=== PATIENT | male | born 1995 | race Caucasian/White ===

== ENCOUNTER 2022-07-16 07:13 | Emergency (ER) | payer OTHER, SELFPAY ==
[2022-07-16] VITALS (8 sets, daily range): BP systolic 123–144; BP diastolic 73–94; PULSE 73–88; RESP 16–21; TEMP 37.1; O2SAT 96–98
--- NOTE | 2022-07-16 07:19 | ECG_ITS ---
Measurements Intervals [place] Rate: 74 P: 77 UT: 170 QRS: 85 QRSD: 114 T: 65 QT: 364 QTc: 404 Interpretive Statements SINUS RHYTHM WITH SINUS ARRHYTHMIA POSSIBLE LEFT ATRIAL ENLARGEMENT INTRAVENTRICULAR CONDUCTION DELAY BORDERLINE R WAVE PROGRESSION, ANTERIOR LEADS BASELINE WANDER- V3 BORDERLINE ECG NO PREVIOUS ECG AVAILABLE FOR COMPARISON Electronically Signed On 07-16-2022 8:15:50 CDT by Mark Corbett D.O.
[2022-07-16 07:34] LABS: Basophils Absolute Auto 0.1 K/mm3 (0.0-0.1); Basophils Percent Auto 0.5 % (0.2-1.2); Eosinophils Absolute Auto 0.1 K/mm3 (0-0.3); Eosinophils Percent Auto 0.8 % (0-4.4); Hematocrit 47.9 % (42.0-52.0); Hemoglobin 16.6 g/dL (14.0-18.0); Immature Granulocyte Absolute 0.03 K/mm3 (0.00-0.031); Immature Granulocyte Percent A 0.3 % (0-0.5); Lymphocytes Absolute Auto 4.53 K/mm3 (0.9-3.2); Lymphocytes Percent Auto 42.7 % (18.3-44.2); Mean Corpuscular HGB Conc 34.7 g/dl (32-36); Mean Corpuscular Hemoglobin 32.2 pg (26-34); Mean Corpuscular Volume 92.8 fl (80-100); Mean Platelet Volume 9.2 fl (7.4-10.4); Monocytes Absolute Auto 0.6 K/mm3 (0.1-0.6); Monocytes Percent Auto 5.2 % (2.6-8.5); Neutrophils Absolute Auto 5.4 K/mm3 (1.3-6.7); Neutrophils Percent Auto 50.5 % (45.5-73.1); Platelet Count Result 310 k/mm3 (150-375); Red Blood Count 5.16 M/mm3 (4.6-6.20); Red Cell Distribution Width 12.1 % (11.5-14.5); White Blood Count 10.6 K/mm3 (4.5-10.0)
[2022-07-16 07:45] LABS: Acetaminophen 62 ug/mL (10-30); Ethanol 76 mg/dL (<10); Salicylate 19.4 mg/dL (2-20)
--- NOTE | 2022-07-16 07:51 | ED.GENADULT ---
HPI - General Adult General Chief complaint: Overdose Stated complaint: OD on excedrin Time Seen by Provider: 07/16/22 07:20 History of Present Illness HPI narrative: 26-year-old male presenting to the emergency department for evaluation of intentional ingestion with the intent for self-harm of Excedrin. Patient states he does have a history of anxiety and depression. Patient reports that at approximately 630 this morning he took approximately 30 pills of Excedrin. Patient has had some nausea and vomiting since then. Patient denies any THC or alcohol today. Patient denies any prior attempt at self-harm. Patient does have a therapist that he follows with, Geni, approximately every 2 weeks in [place]. Patient last saw his therapist 2 weeks ago. Related Data Home Medications Medication Instructions Recorded Confirmed No Home Medications 07/16/22 07/16/22 Allergies Allergy/AdvReac Type Severity Reaction Status Date / Time No Known Allergies Allergy Verified 07/16/22 07:25 Review of Systems Review of Systems: All systems reviewed & are unremarkable except as noted in HPI and below PMFSH Social History Social History Substance use type: does not use Exam Narrative: APPEARANCE: Well appearing, no pain, no distress, well-nourished. HEAD: normocephalic, atraumatic. EYES: PERRLA/EOMI, conjunctivae clear. NOSE: Normal no drainage EARS:TMS clear with good light reflex. THROAT: Pharynx clear, no exudate. NECK: Supple. No adenopathy, no masses. RESPIRATORY: Airway patent, respirations nonlabored. Clear to auscultation bilaterally, no rales, rhonchi, wheezing. CARDIOVASCULAR: Regular rate and rhythm without murmurs rubs or gallops. ABDOMINAL: Soft, nontender, nondistended, normal bowel sounds MUSCULOSKELETAL: Moves all extremities. Strength/ROM intact, No edema, No calf tenderness. NEURO: Alert. Cranial nerves II through XII intact. Good gait. Good coordination SKIN: Warm, dry. Normal Color PSYCHIATRIC: Normal affect/mood. Course Course Emergency Course: 26-year-old male presented the ED for evaluation of intentional ingestion. Patient took approximately 30 pills of extra strength Excedrin this would contain approximately 7.5 g of Tylenol. This would be below the toxic level of 10 g. Patient is being started on Acetadote until Tylenol levels are resulted. Patient's repeat Tylenol and repeat salicylates were showing decreasing values. Poison control was reconsulted and they stated we needed no more rechecks. Patient was medically cleared once his nausea and vomiting resolved. Crisis counselor was consulted and patient was accepted for placement into [facility]. Patient family were updated on the results of the work-up and plan for admission. All question concerns were addressed. Patient was well-appearing and stable at time of transfer. Reevaluation(s) Reevaluation #1: Patient is medically cleared by poison control. Patient is medically cleared to be evaluated by the crisis counselor. Patient is medically cleared for transport and inpatient hospitalization as needed. Vital Signs Vital signs: Vital Signs Temperature 98.8 F 07/16/22 07:21 Pulse Rate 88 07/16/22 07:21 Respiratory Rate 16 07/16/22 07:21 Blood Pressure 144/81 H 07/16/22 07:21 Pulse Oximetry 98 07/16/22 07:21 Oxygen Delivery Room Air 07/16/22 07:21 Temperature 98.8 F 07/16/22 07:21 Pulse Rate 78 07/16/22 14:45 Respiratory Rate 20 07/16/22 14:45 Blood Pressure 132/73 07/16/22 14:45 Pulse Oximetry 98 07/16/22 14:45 Oxygen Delivery Room Air 07/16/22 07:21 Medical Decision Making Vital Signs Vital Signs: Vital Signs Temperature 98.8 F 07/16/22 07:21 Pulse Rate 88 07/16/22 07:21 Respiratory Rate 16 07/16/22 07:21 Blood Pressure 144/81 H 07/16/22 07:21 Pulse Oximetry 98 07/16/22 07:21 Oxygen Delivery Room Air 07/16/22 07:21 Temperature 98.8 F 07/16/22 07:21 P
[2022-07-16 07:55] LABS: Alanine Aminotransferase 25 U/L (6-50); Albumin Level 5.5 g/dL (3.5-5.1); Alkaline Phosphatase 68 U/L (38-126); Anion Gap 19 mmol/L (8-16); Aspartate Amino Transferase 34 U/L (17-59); Bilirubin,Total 0.9 mg/dL (0.2-1.3); Blood Urea Nitrogen 7 mg/dL (9-20); Calcium 9.8 mg/dL (8.4-10.2); Carbon Dioxide 20 mmol/L (22-30); Chloride 105 mmol/L (98-107); Estimated CRCL calculation 124 ml/min; Estimated Glomerular Filt Rate > 60; Glucose 126 mg/dL (65-110); Sodium 144 mmol/L (137-145)
--- NOTE | 2022-07-16 07:57 | PC.NURSE ---
Poison control called, spoke with Lexie who recommended tylenol levels 4 hours after ingestion which is 1030, and aspirin levels every 2-4 hours. She expects nausea, vomiting, gi upset, tachycardia, htn. She states that pt is at approx 7.5 g, toxic level is over 10g. Dr. Locke notified
[2022-07-16 08:31] LABS: SARS-CoV-2 RNA PCR Negative (Negative)
[2022-07-16 08:48] LABS: Salicylate 28.5 mg/dL (2-20)
[2022-07-16] MEDS: WATER IVPB (08:53)
[2022-07-16] MEDS: ACETYLCYSTEINE IVPB (08:53)
[2022-07-16] MEDS: DEXTROSE 5% IVPB (08:53)
[2022-07-16] MEDS: SODIUM CHLORIDE 0.9% IV 1,000 ML 999 ML IV CONT (09:48)
[2022-07-16 10:04] LABS: Appearance Urine Cloudy (Clear); Bacteria Urine None Seen /hpf; Bilirubin Urine Negative (Negative); Blood Urine Negative (Negative); Color Urine Yellow (Yellow); Glucose Urine UA Negative (Negative); Ketones Urine 3+ mg/dL (Negative); Leukocyte Esterase Ur Negative LEU/UL (Negative); Nitrate Urine Negative (Negative); Non Pathogenic Casts 0-2; Protein Urine 1+ mg/dL (Negative); RBC Urine 0-2 /hpf (0-2); Specific Grav Ur 1.027 (1.001-1.035); Squamous Epithelial Cell Urine None seen /hpf (Few); Urobilinogen Urine 0.2 mg/dL (<2.0); WBC Urine 0-5 /hpf
[2022-07-16 10:13] LABS: Add Urine Microscopic? YES
[2022-07-16 10:15] LABS: Amphetamine Screen Urine Negative (Negative); Barbiturate Screen Urine Negative (Negative); Benzodiazepines Screen Urine Negative (Negative); Cannabinoid Screen Urine Positive (Negative); Cocaine Screen Urine Negative (Negative); Methadone Screen Urine Negative (Negative); Opiate Screen Urine Negative (Negative); Phencyclidine Screen Urine Negative (Negative)
--- NOTE | 2022-07-16 10:33 | PC.NURSE ---
Lexie from poison control called to check on the pt,and get update on the lab results, no new orders, continue to monitor s/s and recheck Tylenol and ASA levels. She will call back at 1100.
[2022-07-16 11:01] LABS: Acetaminophen 33 ug/mL (10-30)
[2022-07-16 11:02] LABS: Salicylate 23.5 mg/dL (2-20)
[2022-07-16] MEDS: METOCLOPRAMIDE HCL INJ 10 MG/2 ML VIAL IV PUSH (11:25)
--- NOTE | 2022-07-16 11:31 | PC.NURSE ---
PT safety tray ordered at 11:30 for lunch
--- NOTE | 2022-07-16 11:43 | PC.NURSE ---
11:12 spoke with Lexie from poison control with new lab results. no new recommendations given.
[2022-07-16] MEDS: ONDANSETRON INJ 4 MG/2 ML VIAL IV PUSH (12:09)
--- NOTE | 2022-07-16 13:37 | PC.NURSE ---
1336 spoke with Lexie from poison control, case to be closed out at this time.
--- NOTE | 2022-07-16 15:22 | ECG_ITS ---
Measurements Intervals [place] Rate: 69 P: 76 CO: 159 QRS: 73 QRSD: 104 T: 65 QT: 425 QTc: 458 Interpretive Statements SINUS RHYTHM POSSIBLE LEFT ATRIAL ENLARGEMENT INCOMPLETE RIGHT BUNDLE BRANCH BLOCK BORDERLINE ECG COMPARED TO ECG 07/16/2022 07:45:11 NO SIGNIFICANT CHANGES Electronically Signed On 07-16-2022 15:46:07 CDT by Mark Corbett D.O.
[2022-07-16 15:42] LABS: INR 1.1; Prothrombin Time 14.8 Seconds (11.1-14.7)
[2022-07-16 15:50] LABS: Alanine Aminotransferase 41 U/L (6-50); Albumin Level 5.3 g/dL (3.5-5.1); Alkaline Phosphatase 75 U/L (38-126); Anion Gap 18 mmol/L (8-16); Aspartate Amino Transferase 38 U/L (17-59); Bilirubin,Total 0.7 mg/dL (0.2-1.3); Blood Urea Nitrogen 9 mg/dL (9-20); Calcium 9.6 mg/dL (8.4-10.2); Carbon Dioxide 22 mmol/L (22-30); Chloride 103 mmol/L (98-107); Estimated CRCL calculation 140 ml/min; Estimated Glomerular Filt Rate > 60; Glucose 125 mg/dL (65-110); Potassium 3.7 mmol/L (3.4-5.0); Sodium 143 mmol/L (137-145)
== END 2022-07-16 19:56 ==
PROVIDERS: Emergency Provider Emergency Medicine
DX: T39.012A Poisoning by aspirin, intentional self-harm, initial encounter (principal); Z20.822 Contact with and (suspected) exposure to COVID-19
CPT/HCPCS: 36415; 80053; 80307; 81001; 84443; 85025; 85610; 87635; 93005; 96365; 96366; 96375; 99285; J0132; J2405; J2765; J7030; J7060; U0005

== ENCOUNTER 2024-03-01 11:45 | Emergency (ER) | payer OTHER, SELFPAY ==
[2024-03-01 11:48] VITALS: BP 126/81; PULSE 89; RESP 16; TEMP 36.6; O2SAT 98
[2024-03-01] MEDS: ONDANSETRON HCL ODT 4 MG TABLET PO (12:20)
--- NOTE | 2024-03-01 12:22 | ED_ITS ---
HPI - General Adult General Chief complaint: Nausea/Vomiting/Diarrhea Stated complaint: N/V/D, sent from for coffee ground emesis Time Seen by Provider: 03/01/24 11:54 History of Present Illness HPI narrative: This is a 28-year-old male presenting ED with nausea vomiting. Patient was at a wedding last night. He drank a large amount of alcohol and took some Adderall. He started to have recurrent nausea and vomiting overnight. He says that he frequently vomits when he drinks alcohol but does not happen over over like this. There was some concern about dark specks in his vomit that they described as coffee-ground emesis but he has been vomiting a been I see no concerning findings. Patient denies fevers chills chest pain difficulty breathing. He has some abdominal comfortably wretches but no pain at baseline. He has been having diarrhea but that is normal for him. No urinary symptoms. Related Data Allergies Allergy/AdvReac Type Severity Reaction Status Date / Time No Known Allergies Allergy Verified 03/01/24 11:46 [facility] Social History Social History Substance use type: does not use Exam Narrative: APPEARANCE: No apparent distress. Head: atraumatic. EYES: EOMI, NOSE: Atraumatic NECK: Trachea midline RESPIRATORY: No increased rate of breathing Clear to auscultation CARDIOVASCULAR: RRR, ABDOMINAL: Non-distended soft nontender no guarding rebound MUSCULOSKELETAl: No obvious deformities NEURO: Alert. Moving 4/4 extremities SKIN:: Warm, dry. Normal color PSYCHIATRIC: Normal affect Course Vital Signs Vital signs: Vital Signs Temperature 98 F 03/01/24 11:48 Pulse Rate 89 03/01/24 11:48 Respiratory Rate 16 03/01/24 11:48 Blood Pressure 126/81 03/01/24 11:48 Pulse Oximetry 98 03/01/24 11:48 Oxygen Delivery Room Air 03/01/24 11:48 Temperature 98 F 03/01/24 11:48 Pulse Rate 89 03/01/24 11:48 Respiratory Rate 16 03/01/24 11:48 Blood Pressure 126/81 03/01/24 11:48 Pulse Oximetry 98 03/01/24 11:48 Oxygen Delivery Room Air 03/01/24 11:48 Medical Decision Making MDM Narrative Medical decision making narrative: -Course: 28-year-old male presenting with nausea vomiting after drinking large amount alcohol a wetting. There was concern from the Urgent Care about coffee- ground emesis but he has his vomit in a bin next mm there is no blood. His vital signs are stable and his abdominal exam is benign. Patient will be treated with Zofran and Pepcid. patient was offered IV fluids and has declined. He is tolerating p.o. he will be discharged with prescriptions as needed. He has been given return precautions for severe abdominal pain fevers or intractable nausea vomiting. -DDX includes but is not limited to: Alcoholic gastritis, alcoholic intoxication Vital Signs Vital Signs: Vital Signs Temperature 98 F 03/01/24 11:48 Pulse Rate 89 03/01/24 11:48 Respiratory Rate 16 03/01/24 11:48 Blood Pressure 126/81 03/01/24 11:48 Pulse Oximetry 98 03/01/24 11:48 Oxygen Delivery Room Air 03/01/24 11:48 Temperature 98 F 03/01/24 11:48 Pulse Rate 89 03/01/24 11:48 Respiratory Rate 16 03/01/24 11:48 Blood Pressure 126/81 03/01/24 11:48 Pulse Oximetry 98 03/01/24 11:48 Oxygen Delivery Room Air 03/01/24 11:48 Discharge Plan Discharge Clinical Impression: Hangover effect, Nausea & vomiting Patient Disposition: Home, Self-Care Condition: Stable Instructions: Antibiotic Form, Alcohol Intoxication (ED) Additional Instructions: Please use Zofran for nausea. Please eat a bland diet today. Please refrain from heavy alcohol use it appears you do not tolerate it very well. Urine turning ED at any time he develops persistent nausea vomiting fevers or severe abdominal pain. Patient Language: Icelandic Prescriptions: New ondansetron 4 mg tablet,disintegrating 4 mg PO Q8H PRN (Reason: nausea and vomiting) Qty: 30 0RF famotidine [Pepcid] 20 mg tablet 20 mg PO BID 7 Days Qty: 14 0RF Follow-up/Referrals: Tammy,Naif Shah MD [Primary Care Provider] -
[2024-03-01] MEDS: FAMOTIDINE 20 MG TABLET PO (12:36)
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
--- OUTSIDE RECORDS SUMMARY | 2024-03-08 10:39 | XMS_ITS | Encounter Summary ---
Author Organization [facility] Address [address] [facility] [address] [place] [address] Care Team Providers Care Information Technology Specialist Name Role Phone Naif Munoz MD Primary Care Provider [phone] Reina Smyth NP Unavailable [phone] Reason for Visit * Reason Onset Date Comments Medical Question/Miscellaneous 08/08/2022 Encounter Details Date Type Department Care Team (Late st Contact Info) Description 08/08/2022 Telephone [facility] Primary Care at [address] [address] Naif Munoz MD [address] [place] [address] [address] [place] [address] Medical Question/Miscellaneous Social History Tobacco Use Types Packs/Day Years Used Date Smoking Tobacco: Former Cigarettes Q uit: 05/07/2014 Smokeless Tobacco: Never Alcohol Use Standard Drinks/Week Comments Not Currently [...] on file 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 Patient made aware still in process. Patient would like a call once this has been completed. Caller???s Call back #: [phone] Does message need to be routed? No * Telephone Encounter - Justa Arana - 08/08/2022 12:57 PM CDT Medical Question/Miscellaneous Caller???s Concern: Patient is calling stating that he was seen in office today. He was given a letter to give to his employer but he forgot to mention that it needed to list no restrictions. Patientis wanting to know if that information can be added to the letter and faxed to his employer. Patient is asking for this to be done as possible. Caller???s Call back #: [phone] Does message need to be routed? Yes-Action Needed documented in this encounter Plan of Treatment Not on file documented as of this encounter Visit Diagnoses Not on filedocumented in this encounter Care Teams Information Technology Specialist Relationship Specialty Start Date End Date Naif Munoz MD [address] [facility] [address] [place] [address] PCP - General Family Medicine 04/09/22 Reina Smyth NP [address] [place] [address] ERICKA MARTE [address] Nurse Practitioner Psychiatry 08/07/22 documented as of this encounter
--- OUTSIDE RECORDS SUMMARY | 2024-03-08 10:39 | XMS_ITS | Clinical Summary ---
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): A(n) initial well visit to establish care [...] Yrs) PURPLE 08/16/2020,07/26/2020 Tdap 05/10/2022,08/07/2011 Varicella 07/17/2001,11/18/2000 Surgical History Surgery Date Site/Laterality Comments WISDOM TOOTH EXTRACTION 03/04/2019 - 03/03/2020 Family History * Patient is adopted Medical History Relation Name Comments No Known Problems Brother 1 No Known Problems Brother 2 No Known Problems Father No Known Problems Maternal Grandfather No Known Problems Maternal Grandmother No Known Problems Mother No Known Problems Paternal Grandfather No Known Problems Paternal Grandmother Gallbladder disease Sister Relation Name Status Comments Brother 1 Alive Brother 2 Alive Father Alive Maternal Grandfather Maternal Grandmother Mother Alive Paternal Grandfather Paternal Grandmother Sister Alive Social History Tobacco Use Types Packs/Day Years [...] on file Legal Sex Male 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 Gender Identity Not on file Sexual Orientation Not on file 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 Not on file Not on file Not on file Obstetrics History Last Filed Vital Signs Vital Sign Reading [...] 10/29/2023 3:22 PM CDT Plan of Treatment Health Maintenance Due Date Last Done Comments Hepatitis C Screening 1997 Covid-19 Vaccine ( season) 2023 08/16/2020, 07/26/2020 Influenza Vaccine (#1) 2023 12/11/2013, 2013 Depression Screening 10/28/2024 10/29/2023, 10/10/2022, 08/08/2022, Additional history exists Regular Well Visit/Exam 18-64 10/28/2024 10/29/2023, 04/09/2022 DTaP/Tdap/Td Vaccine (8 - Td or Tdap) 05/10/2032 05/10/2022, 08/07/2011, 10/15/2002, Additional history exists Varicella Vaccines Discontinued 07/17/2001, 11/18/2000 HPV Vaccines Completed 02/07/2012, 10/02, 08/07/2011 Pneumococcal vaccine <65 Aged Out No longer eligible based on patient's age to complete this topic Insurance [place] [id number] [employer] , [facility] [address] [place] [address] Care Teams Chief Librarian Branch Or Department Relationship Specialty Start Date End Date Naif Munoz MD [address] [facility] [address] [place] [address] PCP - General Family Medicine 04/09/22 Reina Smyth NP [address] [place] [address] ERICKA MARTE [address] Nurse Practitioner Psychiatry 08/07/22
--- OUTSIDE RECORDS SUMMARY | 2024-03-08 10:39 | XMS_ITS | Encounter Summary ---
Author Organization [facility] Medical [facility] Address [address] [facility] [address] [place] [address] Care Team Providers Care Light Out Examiner Name Role Phone Naif Munoz MD Primary Care Provider [phone] Reina Smyth NP Unavailable [phone] Reason for Visit * Reason Comments Follow-up Pt is here for a 4 w k f/u. Encounter Details Date Type Department Care Team (Late st Contact Info) Description 10/10/2022 11:00 AM CDT Office Visit [facility] Primary Care at [address] [address] Naif Munoz MD [address] [place] [address] [address] [place] [address] Bipolar 1 disorder (HCC) (Primary Dx) Social History Tobacco Use Types Packs/Day Years Used Date Smoking Tobacco: Every Day Cigarettes 0.3 8 Smokeless Tobacco: Never Tobacco Cessation:Ready to Q uit: Not Asked; Counseling Given: Not Answered Alcohol Use Standard Drinks/Week [...] points, staff should administer the PHQ-9) 0 10/10/2022 Sex and Gender Information Value Date Recorded Sex Assigned at Not on file 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 Gender Identity Not on file Sexual Orientation Not on file 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 Not on file Not on file Not on file documented as of this encounter Last Filed Vital Signs Vital Sign Reading Time Taken Comments Blood Pressure 120/78 10/10/2022 11:01 AM CDT Pulse 73 10/10/2022 11:01 AM CDT Temperature 36.8 ??C (98.2 ??F) 10/10/2022 11:01 AM C DT Respiratory Rate - - Oxygen Saturation 98% 10/10/2022 11:01 AM CDT Inhaled Oxygen Concentration - - Weight 68.6 kg (151 lb 4.8 oz) 10/10/2022 11:01 AM CDT Height 175.3 cm (5' 9 ) 10/10/2022 11:01 AM CDT Body Mass Index 22.34 10/10/2022 11:01 AM CDT documented in this encounter Patient Instructions * Patient Instructions* Naif Munoz MD - 10/10/2022 11:00 AM CDT Doing better No new changes Will complete FMLA as requested Thanks for coming in today! My medical assistants and I are thankful you have trusted us with your care, and hope that you received EXCELLENT care today! Please do not hesitate to call if you have any questions or concerns at [phone]. You may receive a phone call, text, MYCHART message, or e-mail asking about your care today. We would love to hear your feedback on how EXCELLENT your care wastoday! Wishing you better health, always. Dr. Munoz documented in this encounter Progress Notes * Naif Munoz MD - 10/10/2022 11:00 AM CDT Images from the original note were not included. Subjective/Objective Patient ID: Tolu Gomez is a 27 y.o. male. Chief Complaint Follow-up (Pt is here for a 4 wk f/u. ) Tolu presents for follow up. He is now on Vraylar, which he states is working better than the previous (switched by his psychiatrist). He has stopped smoking marijuana as he failed a drug test; he passed subsequent one and has returned to work. Current Outpatient Medications: dextroamphetamine-amphetamine (ADDERALL) 10 mg tablet, Take 1 tablet (10 mg total) by mouth 2 (two)times a day, Disp: , Rfl: Vraylar 1.5 mg capsule, Take 1 capsule (1.5 mg total) by mouth every morning, Disp: , Rfl: escitalopram (Lexapro) 10 mg tablet, Take 1 tablet (10 mg total) by mouth daily (Patient not taking: Reported on 10/10/2022), Disp: 30 tablet, Rfl: 2 hydrOXYzine (ATARAX) 25 mg tablet, Take 1 tablet (25 mg total) by mouth 3 (three) times a day as needed for anxiety (Patient not taking: Reported on 10/10/2022), Disp: 30 tablet, Rfl: 1 Review of Systems Constitutional: Negative for fatigue and fever. HENT: Negative. Eyes: Negative. Respiratory: Negative for cough, shortness of breath and wheezing. Cardiovascular: Negative for chest pain and palpitations. Gastrointestinal: Negative. Genitourinary: Negative. Musculoskeletal: Negative for myalgias and neck pain. Neurological: Negative for headaches. Psychiatric/Behavioral: Negative. BP 120/78 (BP Location: Left arm, Patient Position: Sitting) Pulse 73 Temp 36.8 ??C (98.2 ??F) (Oral) Ht 175.3 cm (5' 9 ) Wt 68.6 kg (151 lb 4.8 oz) SpO2 98% BMI 22.34 kg/m?? Physical Exam Vitals reviewed. Constitutional: Appearance: He is normal weight. Neurological: Mental Status: He is alert and oriented to person, place, and time. Mental status is at baseline. Psychiatric: Mood and Affect: Mood normal. Assessment/Plan Diagnoses and all orders for this visit: Bipolar 1 disorder (HCC) (Primary) Comments: diagnosed by psych currently on Vraylar, tolerating it well FMLA received Naif Munoz MD This office note has been partially dictated using Swivel software, and as a result portions of the record may have been created with this software. Occasional wrong-word or '[id number]' substitutions may have occurred due to the inherent limitations of voice recognition software. Read the chartcarefully and recognize, using context, where substitutions have occurred. documented in this encounter Plan of Treatment Not on file documented as of this encounter Visit Diagnoses Diagnosis Bipolar 1 disorder (HCC)- Primary documented in this encounter Discontinued Medications Medication Sig Discontinue Reason Start Date End Da te escitalopram (Lexapro) 10 mg tabletIndications:major depressive disorder Take 1 tablet (10 mg total) by mouth daily Alternate therapy 08/08/2022 10/10/2022 hydrOXYzine (ATARAX) 25 mg tabletIndications:anxiet y Take 1 tablet (25 mg total) by mouth 3 (three) times a day as needed for anxiety 05/14/2022 10/10/2022 documented as of this encounter Historical Medications * This list may reflect changes made after this encounter. Vraylar 1.5 mg capsule Take 1 capsule (1.5 mg total) by mouth every morning 09/18/2022 dextroamphetamine -amphetamine (ADDERALL) 10 mg tablet Take 1 tablet (10 mg total) by mouth 2 (two) times a day 08/29/2022 10/29/2023 added in this encounter Care Teams Light Out Examiner Relationship Specialty Start Date End Date Naif Munoz MD [address] [facility] [address] [place] [address] PCP - General Family Medicine 04/09/22 Reina Smyth NP [address] [place] [address] ERICKA MARTE [address] Nurse Practitioner Psychiatry 08/07/22 documented as of this encounter
--- OUTSIDE RECORDS SUMMARY | 2024-03-08 10:39 | XMS_ITS | Encounter Summary ---
Author Organization [facility] Healthcare Address [address] [place] [address] Care Team Providers Care Wire Frame Lampshade Maker Name Role Phone Naif Munoz MD Primary Care Provider [phone] Reina Smyth PATTERN CUTTER Unavailable [phone] Encounter Details Date Type Department Care Team (Late st Contact Info) Description 10/29/2023 3:[address] 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 file Not on file Not on file documented as of this encounter Plan of Treatment Not on file documented as of this encounter Visit Diagnoses Diagnosis Annual physical exam- Primary Routine general medical examination at a health care facility documented in this encounter Care Teams Wire Frame Lampshade Maker Relationship Specialty Start Date End Date Naif Munoz MD [address] [facility] [address] [place] [address] PCP - General Family Medicine 04/09/22 Reina Smyth NP [address] [place] [address] ERICKA MARTE [address] Nurse Practitioner Psychiatry 08/07/22 documented as of this encounter
--- OUTSIDE RECORDS SUMMARY | 2024-03-08 10:39 | XMS_ITS | Encounter Summary ---
Author Organization [facility] Healthcare Address [address] [place] [address] Care Team Providers Care Traveling Passenger Agent Name Role Phone Naif Munoz MD Primary Care Provider [phone] Reina Smyth SPOILAGE WORKER Unavailable [phone] Encounter Details Date Type Department Care Team (Latest Contact Info) Description 10/29/2023 8:22 PM CDT - 10/29/2023 11:59 PM [place] [address] Annual physical exam; Screening, lipid Discharge Disposition: Discharge to home or self care Social History Tobacco Use Types Packs/Day Years [...] on file Legal 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 Gender Identity Not on file Sexual Orientation Not on file 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 on file Not on file Not on file documented as of this encounter Medications at Time of Discharge buPROPion SR (WELLBUTRIN SR) 100 mg 12 hr tablet 10/25/2023 dextroamphetamin e-amphetamine (ADDERALL) 30 mg tablet 2 (two) times a day 10/27/2023 hydrocortisone (ANUSOL-HC) 2.5 % rectal cream Insert into the rectum 4 (four) times a day as needed for hemorrhoids (rectal discomfort) Apply to affected areas 30 g 10/29/2023 nicotine (NICODERM CQ) 21 mg APPLY 1 PATCH TO SKIN EVERY DAY AND REMOVE AT NIGHT 09/18/2023 QUEtiapine (SEROquel) 50 mg tablet 10/25/2023 Vraylar 1.5 mg capsule Take 1 capsule (1.5 mg total) by mouth every morning 09/18/2022 documented as of this encounter Discharge Disposition Disposition Code Departure Means Destination Discharge to home or self care documented in this encounter Plan of Treatment Not on file documented as of this encounter Procedures Procedure Name Priority Date/Time Associated Diagnosis Comments EGFR Routine 10/29/2023 4:00 PM CDT Annual physical exam DIFFERENTIAL AUTO Routine 10/29/2023 4:0 0 PM CDT Annual physical exam CBC WITH AUTO DIFFERENTIAL Routine 10/29/2023 4:00 PM CDT Annual physical exam LIPID PANEL Routine 10/29/2023 4:00 PM CDT Screening, lipid COMPREHENSIVE METABOLIC PANEL Routine 10/29/2023 4:00 PM CDT Annual physical exam documented in this encounter Results * eGFR (10/29/2023 4:00 PM CDT) eGFR >90 >=60 mL/min/1. 73 m2 Comment: Interpretive Data Reference Interval Normal ?>/= 90 mL/min/1.73m2 Mildly decreased* ? 60 - 89 mL/min/1.73m2 Mildly to moderately decreased ?45 - 59 mL/min/1.73m2 Moderately to severely decreased ??30 - 44 mL/min/1.73m2 Severely decreased ?15 - 29 mL/min/1.73m2 Kidney Failure ?< 15 ??mL/min/1.73m2 *Relative to young adult level Estimated glomerular filtration rate is determined by the 2020 CKD-EPI equation recommended by the National Kidney Foundation (A Unifying Approach to GFR Estimation: Recommendations of the NKF-ASK Task Force on Reassessing the Inclusion of Race in Diagnosing Kidney Disease, JASN 2020). The CKD-EPI equation should not be used for patients with unstable renal function and has not been validated in children and those over 70. Current interpretive data was last reviewed 2021. Blood 10/29/2023 4:00 PM CDT 10/29/2023 8:51 PM CDT us Naif Munoz MD LAB BLOOD ORDERABLES Final Result [facility] [id number] [address] [place] [address] * Differential, auto (10/29/2023 4:00 PM CDT) Neutrophil abs 4.4 1.5 - 6.5 K/cumm Imm gran abs 0.0 0.0 - 0.1 K/cumm [facility] Lymphocyte abs 2.4 0.8 - 3.3 K/cumm [facility] Monocyte abs 0.3 0.2 - 0.8 K/cumm [facility] Eosinophil abs 0.1 0.0 - 0.5 K/cumm [facility] Basophil abs 0.0 0.0 - 0.1 K/cumm [facility] Neutrophil pct 60.8 % [facility] Comment: Interpretive Data Percent cell count reference ranges are not reported, since discordance with absolute values may lead to misinterpretation of CBC data. Current Interpretive Data was last revised on 2017. Imm gran pct 0.1 % [facility] Comment: Interpretive Data Percent cell count reference ranges are not reported, since discordance with absolute values may lead to misinterpretation of CBC data. Current Interpretive Data was last revised on 2017. Lymphocyte pct 33.4 % [facility] Comment: Interpretive Data Percent cell count reference ranges are not reported, since discordance with absolute values may lead to misinterpretation of CBC data. Current Interpretive Data was last revised on 2017. Monocyte pct 4.0 % [facility] Comment: Interpretive Data Percent cell count reference ranges are not reported, since discordance with absolute values may lead to misinterpretation of CBC data. Current Interpretive Data was last revised on 2017. Eosinophil pct 1.1 % [facility] Comment: Interpretive Data Percent cell count reference ranges are not reported, since discordance with absolute values may lead to misinterpretation of CBC data. Current Interpretive Data was last revised on 2017. Basophil pct 0.6 % [facility] Comment: Interpretive Data Percent cell count reference ranges are not reported, since discordance with absolute values may lead to misinterpretation of CBC data. Current Interpretive Data was last revised on 2017. Blood 10/29/2023 4:00 PM CDT 10/29/2023 8:37 PM CDT Naif Munoz MD LAB BLOOD ORDERABLES Final Result [facility] [id number] [address] Department of Laboratories [place], [place] [id number] * Lipid panel (10/29/2023 4:00 PM CDT) Cholesterol 149 30 - 199 mg/dL Comment: Interpretive Data Ages < or = 19 years ??Acceptable: ? <170 mg/dL ??Borderline high: ??170-199 mg/dL ??High: ? >or= 200 mg/dL Ages > or = 20 years ??Desirable: ?<200 mg/dL ??Borderline high: ??200-239 mg/dL ??High: ? >or= 240 mg/dL Literature References: 1. Expert Panel on Integrated Guidelines for Cardiovascular Health and Risk Reduction in Children and Adolescents. Pediatrics 2011;128:S213 2. NCEP Expert Panel. Circulation 2004;110:227 Current Interpretive Data was last revised on 2017. Triglycerides 67 <=149 mg/dL [facility] Comment: Interpretive Data Ages < or = 9 years ??Acceptable: ? <75 mg/dL ??Borderline high: ??75-99 mg/dL ??High: ? >or= 100 mg/dL Ages 10 to 20 years ??Acceptable: ? <90 mg/dL ??Borderline high: ??90-129 mg/dL ??High: ? >or= 130 mg/dL Ages > or = 20 years ??Desirable: ?<150 mg/dL ??Borderline high: ??150-199 mg/dL ??High: ? 200-499 mg/dL ?Very high: ?? >or= 499 mg/dL Literature References: 1. Expert Panel on Integrated Guidelines for Cardiovascular Health and Risk Reduction in Children and Adolescents. Pediatrics 2011;128:S213 2. NCEP Expert Panel. Circulation 2004;110:227 Current Interpretive Data was last revised on 2017. HDL 48 >=40 mg/dL [facility] Comment: Interpretive Data Ages < or = 19 years ??Acceptable: ? >45 mg/dL ??Borderline low: ?? 40-45 mg/dL ??Low: ? <40 mg/dL Ages > or = 20 years ??Desirable: ?>or= 60 mg/dL ??Low: ? <40 mg/dL Literature References: 1. Expert Panel on Integrated Guidelines for Cardiovascular Health and Risk Reduction in Children and Adolescents. Pediatrics 2011;128:S213 2. NCEP Expert Panel. Circulation 2004;110:227 Current Interpretive Data was last revised on 2017. LDL, calculated 88 <=129 mg/dL [facility] Comment: Interpretive Data Ages < or = 19 years ??Acceptable: ? <110 mg/dL ??Borderline high: ??110-129 mg/dL ??High: ?>or= 130 mg/dL Ages > or = 20 years ??Optimal: ? <100 mg/dL ??Near optimal: ?100-129 mg/dL ??Borderline high: ?? 130-159 mg/dL ??High: ?>160 mg/dL Calculated using the Martell LDL-C estimating equation. This equation was implemented on 2023. Prior to this date LDL-C was estimated using the Friedewald equation. Literature References: 1. Expert Panel on Integrated Guidelines for Cardiovascular Health and Risk Reduction in Children and Adolescents. Pediatrics 2011;128:S213 2. NCEP Expert Panel. Circulation 2004;110:227 3. Martell Velazquez et al. [place] Cardiol. 2020 July 02;5(5):540-548. doi: 10.1001/jamacardio.2020.0013 Current Interpretive Data was last revised on 2023. Non-HDL Cholesterol 101 mg/dL [facility] Comment: Interpretive Data Ages < or = 19 years ??Acceptable: ?<120 mg/dL ??Borderline high: ??120-144 mg/dL ??High: ?>145 mg/dL Ages > or = 20 years ??When triglycerides are >200 mg/dL, Non-HDL cholesterol is a secondary target of ? therapy with treatment goals that are 30 mg/dL greater than the LDL cholesterol target. ? Literature References: 1. Expert Panel on Integrated Guidelines for Cardiovascular Health and Risk Reduction in Children and Adolescents. Pediatrics 2011;128:S213 2. NCEP Expert Panel. Circulation 2004;110:227 Current Interpretive Data was last revised on 2017. Chol/HDL ratio 3 [facility] Blood 10/29/2023 4:00 PM CDT 10/29/2023 8:37 PM CDT Naif Munoz MD LAB BLOOD ORDERABLES Final Result [facility] [id number] [address] Department [place] [address] * Comprehensive metabolic panel (10/29/2023 4:00 PM CDT) Sodium 141 135 - 145 mmol/L Potassium, pl 4.0 3.3 - 4.9 mmol/L [facility] Chloride 102 97 - 110 mmol/L [facility] CO2 28 22 - 32 mmol/L [facility] Anion gap 11 2 - 15 mmol/L [facility] BUN 8 6 - 25 mg/dL [facility] Creatinine 0.87 0.80 - 1.30 mg/dL [facility] Glucose 95 70 - 199 mg/dL [facility] Comment: Interpretive Data Fasting glucose >/= 126 mg/dl is diagnostic for diabetes. ?? Fasting is defined as no caloric intake for at least 8 hours. Fasting glucose between 100 mg/dl to 125 mg/dl is diagnostic of prediabetes. In a patient with classic symptoms of hyperglycemia or hyperglycemic crisis, a random glucose >/= 200 mg/dl is diagnostic for diabetes. In the absence of unequivocal hyperglycemia, results should be confirmed by repeat testing. The classification and Diagnosis of Diabetes Diabetes Care 202; 46: S19-S40. Current interpretive data was last revised 2022. Calcium 9.5 8.5 - 10.3 mg/dL [facility] Bilirubin, total 0.5 0.1 - 1.2 mg/dL [facility] Protein, pl 7.5 6.5 - 8.5 g/dL [facility] Albumin 4.8 3.5 - 5.0 g/dL [facility] Alk phos 72 40 - 130 Units/L [facility] ALT 16 7 - 55 Units/L [facility] AST 27 10 - 50 Units/L [facility] Blood 10/29/2023 4:00 PM CDT 10/29/2023 8:37 PM CDT Naif Munoz MD LAB BLOOD ORDERABLES Final Result Performing Organization Address [facility] [[email or web address]] de Phone Number [facility] BLAIR [address] [address] [place] [address] * CBC with auto differential (10/29/2023 4:00 PM CDT) WBC 7.2 3.8 - 9.9 K/cumm Hgb 14.3 13.0 - 17.5 g/dL [facility] Hct 43.1 38.9 - 50.3 % [facility] Plt 257 150 - 400 K/cumm [facility] CH MPV 9.9 9.1 - 12.3 fL [facility] RBC 4.49 4.30 - 5.80 M/cumm [facility] CH MCV 96.0 81.3 - 96.4 fL [facility] CH MCH 31.8 27.1 - 33.3 pg [facility] MCHC 33.2 32.3 - 35.7 g/dL [facility] CH RDW CV 11.9 11.1 - 14.9 % [facility] CH RDW SD 41.9 35.7 - 48.1 fL [facility] NRBC abs 0.00 0.00 - 0.01 K/cumm [facility] CH Blood 10/29/2023 4:00 PM CDT 10/29/2023 8:37 PM CDT Naif Munoz MD LAB BLOOD ORDERABLES Final Result Performing Organization Address [facility] Co [place] Phone Number [facility] BLAIR [address] [address] [place] [address] documented in this encounter Visit Diagnoses Diagnosis Annual physical exam Routine general medical examination at a health care facility Screening, lipid documented in this encounter Care Teams Traveling Passenger Agent Relationship Specialty Start Date End Date Naif Munoz MD [address] [place] [address] [place] [id number] PCP - General Family Medicine 04/09/22 Reina Smyht NP [address] [place] [address] ERICKA MARTE [address] Nurse Practitioner Psychiatry 08/07/22 documented as of this encounter
--- OUTSIDE RECORDS SUMMARY | 2024-03-08 10:39 | XMS_ITS | Encounter Summary ---
Author Organization [facility] Healthcare Address [address] [place] [address] Care Team Providers Care Hand Mexican Food Maker Name Role Phone Naif Munoz MD Primary Care Provider [phone] Reina Smyth NP Unavailable [phone] Reason for Visit * Reason Onset Date Comments f/u appt request 12/03/2022 Encounter Details Date Type Department Care Team (Late st Contact Info) Description 12/03/[address] 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 There was no way to leave a message. documented in this encounter Plan of Treatment Not on file documented as of this encounter Visit Diagnoses Not on filedocumented in this encounter Care Teams Hand Mexican Food Maker Relationship Specialty Start Date End Date Naif Munoz MD [address] [facility] [address] [place] [address] PCP - General Family Medicine 04/09/22 Reina Smyth NP [address] [place] [address] ERICKA MARTE [address] Nurse Practitioner Psychiatry 08/07/22 documented as of this encounter
--- OUTSIDE RECORDS SUMMARY | 2024-03-08 10:39 | XMS_ITS | Encounter Summary ---
Author Organization [facility] Healthcare Address [address] [place] [address] Care Team Providers Care Application Security Engineer Name Role Phone Naif Munoz MD Primary Care Provider [phone] Reina Smyth NP Unavailable [phone] Reason for Visit * Reason Comments Follow-up 6 month f/u Encounter Details Date Type Department Care Team (Late st Contact Info) Description 10/29/2023 3:15 PM CDT Office Visit [facility] Medical Group Primary Care at [address] [address] Naif Munoz MD [address] [place] [address] [address] [place] [address] Annual physical exam (Primary Dx); Tobacco use disorder; Bipolar 1 disorder (HCC); Screening, lipid; External hemorrhoid Social History Tobacco Use Types Packs/Day Years [...] on file 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 My medical assistants and I are thankful you have trusted us with your care, and hope that you received EXCELLENT care today! Please do not hesitate to call if you have any questions or concerns at [phone]. You may receive a phone call, text, MYCHART message, or e-mail asking about your care today. We would love to hear your feedback on how EXCELLENT your care wastoday! Wishing you better health, always. Dr. Munoz * Attachments The following attachments cannot be sent through Care Everywhere. * Hemorrhoids (Change Booth Attendant) (Finnish) documented in this encounter Ordered Prescriptions Prescription Sig Dispense Quantity Refills Last Filled Start Date End Date hydrocortisone (ANUSOL-HC) 2.5 % rectal cream Insert into the rectum 4 (four) times a day as needed for hemorrhoids (rectal discomfort) Apply to affected areas 30 g 10/29/2023 documented in this encounter Progress Notes * Naif Munoz MD - 10/29/2023 3:15 PM CDT SUBJECTIVE: Tolu Gomez is a 28 y.o. male presenting for his annual checkup. Current Outpatient Medications Medication Sig Dispense Refill buPROPion SR (WELLBUTRIN SR) 100 mg 12 hr tablet dextroamphetamine-amphetamine (ADDERALL) 30 mg tablet 2 (two) times a day nicotine (NICODERM CQ) 21 mg APPLY 1 PATCH TO SKIN EVERY DAY AND REMOVE AT NIGHT QUEtiapine (SEROquel) 50 mg tablet Vraylar 1.5 mg capsule Take 1 capsule (1.5 mg total) by mouth every morning hydrocortisone (ANUSOL-HC) 2.5 % rectal cream Insert into the rectum 4 (four) times a day as neededfor hemorrhoids (rectal discomfort) Apply to affected areas 30 g 0 No current facility-administered medications for this visit. Allergies: Patient has no known allergies. ROS: Feeling well. No dyspnea or chest pain on exertion. No abdominal pain, change in bowel habits,black or bloody stools. No urinary tract or prostatic symptoms. No neurological complaints. No past medical history on file. Past Surgical History: Procedure Laterality Date WISDOM TOOTH EXTRACTION 2019 Family History Adopted: Yes Problem Relation Age of Onset No Known Problems Mother No Known Problems Father Gallbladder disease Sister No Known Problems Brother No Known Problems Brother No Known Problems Maternal Grandmother No Known Problems Maternal Grandfather No Known Problems Paternal Grandmother No Known Problems Paternal Grandfather Social History Tobacco Use Smoking status: Former Current packs/day: 0.00 Average packs/day: 0.3 packs/day for 8.0 years (2.0 ttl pk-yrs) Types: Cigarettes Quit date: 05/07/2022 Years since quittin.4 Smokeless tobacco: Never Substance and Sexual Activity Drug use: Not Currently Frequency: 1.0 times per week Types: Marijuana, Alcohol Sexual activity: Yes Partners: Female Alcohol Use: Not At Risk (10/29/2023) AUDIT-C Frequency of Alcohol Consumption: Monthly or less Average Number of Drinks: 1 or 2 Frequency of Binge Drinking: Never PHQ Screening Over the past 2 weeks, how often have you been bothered by any of the following problems? Little Interest or Pleasure in Doing Things: Not at all Feeling Down, Depressed, or Hopeless: Not at all PHQ-2 Total Score (If total score is 3 or more points, staff should administer the PHQ-9): 0 OBJECTIVE: The patient appears well, alert, oriented x 3, in no distress. BP 110/70 (BP Location: Left arm, Patient Position: Sitting) Pulse 72 Temp 36.1 ??C (96.9 ??F) (Temporal) Resp 14 Ht 175.3 cm (5' 9 ) Wt 74.4 kg (164 lb) SpO2 98% BMI 24.22 kg/m?? ENT normal. Neck supple. No adenopathy or thyromegaly. ANGLE. Lungs are clear, good air entry, no wheezes, rhonchi or rales. S1 and S2 normal, no murmurs, regular rate and rhythm. Abdomen is soft without tenderness, guarding, mass or organomegaly. exam: deferred. Extremities show no edema, normal peripheral pulses. Neurological is normal without focal findings. ASSESSMENT: healthy adult male PLAN: begin progressive daily aerobic exercise program, follow a low fat, low cholesterol diet, attempt to lose weight, reduce salt in diet and cooking, continue current medications, continue current healthy lifestyle patterns, and return for routine annual checkups documented in this encounter Plan of Treatment Not on file documented as of this encounter Results * CBC with auto differential (10/29/2023 4:00 PM CDT) WBC 7.2 3.8 - 9.9 K/cumm Hgb 14.3 13.0 - 17.5 g/dL [facility] Hct 43.1 38.9 - 50.3 % [facility] Plt 257 150 - 400 K/cumm [facility] MPV 9.9 9.1 - 12.3 fL [facility] RBC 4.49 4.30 - 5.80 M/cumm [facility] MCV 96.0 81.3 - 96.4 fL [facility] MCH 31.8 27.1 - 33.3 pg [facility] MCHC 33.2 32.3 - 35.7 g/dL [facility] RDW CV 11.9 11.1 - 14.9 % [facility] RDW SD 41.9 35.7 - 48.1 fL [facility] NRBC abs 0.00 0.00 - 0.01 K/cumm [facility] Blood 10/29/2023 4:00 PM CDT 10/29/2023 8:37 PM CDT Naif Muonz MD LAB BLOOD ORDERABLES Final Result [facility] [address] [address] Department [place] [address] * Comprehensive metabolic panel (10/29/2023 4:00 PM CDT) Sodium 141 135 - 145 mmol/L Potassium, pl 4.0 3.3 - 4.9 mmol/L [facility] Chloride 102 97 - 110 mmol/L [facility] CO2 28 22 - 32 mmol/L [facility] Anion gap 11 2 - 15 mmol/L [facility] BUN 8 6 - 25 mg/dL [facility] Creatinine 0.87 0.80 - 1.30 mg/dL [facility] Glucose 95 70 - 199 mg/dL [facility] Comment: Interpretive Data Fasting glucose >/= 126 [...] classification and Diagnosis of Diabetes Diabetes Care 2021; 46: S19-S40. Current interpretive data was last [...] 4:00 PM CDT 10/29/2023 8:37 PM CDT us Naif Munoz MD LAB [place] [address] [address] Department [place] [address] * Lipid panel (10/29/2023 4:00 PM CDT) [...] revised on 2017. Triglycerides 67 <=149 mg/dL [facility] Comment: Interpretive Data Ages < or = [...] on 2017. HDL 48 >=40 mg/dL [facility] Comment: Interpretive Data Ages [...] mg/dL ??High: ?>160 mg/dL Calculated using the [place] LDL-C estimating equation. This equation was implemented on 2023. Prior to this date LDL-C was estimated using the Friedewald equation. Literature References: 1. Expert Panel on Integrated Guidelines for Cardiovascular Health and Risk Reduction in Children and Adolescents. Pediatrics 2011;128:S213 2. NCEP Expert Panel. Circulation 2004;110:227 3. Martell Velazquez et al. [place] Cardiol. 2019July 02;5(5):540-548. doi: 10.1001/jamacardio.2020.0013 Current Interpretive Data was [...] last revised on 2017. Chol/HDL ratio 3 [facility] Blood 10/29/2023 4:00 PM CDT 10/29/2023 8:37 PM CDT us Naif Munoz MD LAB BLOOD ORDERABLES Final Result [facility] [address] [address] Department [place] [address] documented in this encounter Visit Diagnoses Diagnosis Annual physical exam- Primary Routine general medical examination at a health care facility Tobacco use disorder Bipolar 1 disorder (HCC) Screening, lipid External hemorrhoid External hemorrhoids without mention of complication documented in this encounter Discontinued Medications Medication Sig Discontinue Reason Start Date End Da te dextroamphetamine-amphet amine (ADDERALL) 10 mg tablet Take 1 tablet (10 mg total) by mouth 2 (two) times a day 08/29/2022 10/29/2023 documented as of this encounter Historical Medications * This list may reflect changes made after this encounter. dextroamphetamine -amphetamine (ADDERALL) 30 mg tablet 2 (two) times a day 10/27/2023 nicotine (NICODERM CQ) 21 mg APPLY 1 PATCH TO SKIN EVERY DAY AND REMOVE AT NIGHT 09/18/2023 QUEtiapine (SEROquel) 50 mg tablet 10/25/2023 buPROPion SR (WELLBUTRIN SR) 100 mg 12 hr tablet 10/25/2023 added in this encounter Care Teams Application Security Engineer Relationship Specialty Start Date End Date Naif Munoz MD [address] [id number] PCP - General Family Medicine 04/09/22 Reina Smyth NP [address] [place] [address] ERICKA MARTE [address] Nurse Practitioner Psychiatry 08/07/22 documented as of this encounter
--- OUTSIDE RECORDS SUMMARY | 2024-03-08 10:40 | XMS_ITS | Encounter Summary ---
Author Organization [facility] Healthcare Address [address] [place] [address] Care Team Providers Care Junior Business Analyst Name Role Phone Naif Munoz MD Primary Care Provider [phone] Encounter Details Date Type Department Care Team (Latest Contact Info) Description 04/09/2022 3:56 PM OPEN DEVELOPER OPERATOR - 04/09/2022 11:59 PM OPEN DEVELOPER OPERATOR Hospital Encounter [address] [address] Encounter for medical examination to establish care; Screening, lipid; Screening for thyroid disorder Discharge Disposition: Discharge to home or self care Social History Tobacco Use Types Packs/Day Years Used Date Smoking Tobacco: Every Day Cigarettes 0.3 8 AUDIT-C Answer Date Recorded Q1: How often [...] points, staff should administer the PHQ-9) 0 04/09/2022 Sex and Gender Information Value Date Recorded Sex Assigned at Not on file Legal Sex Male 4:12 PM OPEN DEVELOPER OPERATOR Gender Identity Not on file Sexual Orientation Not on file 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 Not on file Not on file Not on file documented as of this encounter Medications at Time of Discharge varenicline tartrate (Chantix Starting Month Box) 0.5 mg (11)- 1 mg (42) tabletIndication s:Smoking Cessation Take as per instructions; try to stop smoking entirely after 1st week 53 tablet 04/09/2022 08/08/2022 documented as of this encounter Discharge Disposition Disposition Code Departure Means Destination Discharge to home or self care documented in this encounter Plan of Treatment Not on file documented as of this encounter Procedures Procedure Name Priority Date/Time Associated Diagnosis Comments EGFR Routine 04/09/2022 3:56 PM OPEN DEVELOPER OPERATOR Encounter for medical examination to establish care DIFFERENTIAL AUTO Routine 04/09/2022 3:5 6 PM OPEN DEVELOPER OPERATOR Encounter for medical examination to establish care THYROID FUNCTION CASCADE Routine 04/09/2022 3:56 PM OPEN DEVELOPER OPERATOR Screening for thyroid disorder CBC WITH AUTO DIFFERENTIAL Routine 04/09/2022 3:56 PM OPEN DEVELOPER OPERATOR Encounter for medical examination to establish care LIPID PANEL Routine 04/09/2022 3:56 PM OPEN DEVELOPER OPERATOR Screening, lipid COMPREHENSIVE METABOLIC PANEL Routine 04/09/2022 3:56 PM OPEN DEVELOPER OPERATOR Encounter for medical examination to establish care documented in this encounter Results * eGFR (04/09/2022 3:56 PM OPEN DEVELOPER OPERATOR) [facility] eGFR 123 mL/min/1. 73 m2 [facility] Comment: Interpretive Data Reference Interval Normal ?>/= [...] interpretive data was last reviewed 2021. Blood 04/09/2022 3:56 PM OPEN DEVELOPER OPERATOR 04/09/2022 8:37 PM OPEN DEVELOPER OPERATOR us Naif Munoz MD LAB BLOOD ORDERABLES Final Result [facility] [id number] Department [place] [address] * (ABNORMAL) Differential, auto (04/09/2022 3:56 PM OPEN DEVELOPER OPERATOR) Neutrophil abs 6.7(H) 1.7 - 6.5 K/cumm [facility] Imm gran abs 0.0 0.0 - 0.1 K/cumm [facility] Lymphocyte abs 2.4 0.8 - 3.3 K/cumm [facility] Monocyte abs 0.5 0.2 - 0.8 K/cumm [facility] Eosinophil abs 0.1 0.0 - 0.5 K/cumm [facility] Basophil abs 0.1 0.0 - 0.1 K/cumm [facility] Neutrophil pct 68.7 % [facility] Comment: Interpretive Data Percent cell count reference ranges are not reported, since discordance with absolute values may lead to misinterpretation of CBC data. Current Interpretive Data was last revised on 2017. Imm gran pct 0.4 % [facility] Comment: Interpretive Data Percent cell count reference ranges are not reported, since discordance with absolute values may lead to misinterpretation of CBC data. Current Interpretive Data was last revised on 2017. Lymphocyte pct 24.3 % [facility] Comment: Interpretive Data Percent cell count reference ranges are not reported, since discordance with absolute values may lead to misinterpretation of CBC data. Current Interpretive Data was last revised on 2017. Monocyte pct 4.9 % [facility] Comment: Interpretive Data Percent cell count reference ranges are not reported, since discordance with absolute values may lead to misinterpretation of CBC data. Current Interpretive Data was last revised on 2017. Eosinophil pct 1.2 % [facility] Comment: Interpretive Data Percent cell count reference ranges are not reported, since discordance with absolute values may lead to misinterpretation of CBC data. Current Interpretive Data was last revised on 2017. Basophil pct 0.5 % [facility] Comment: Interpretive Data Percent cell count reference ranges are not reported, since discordance with absolute values may lead to misinterpretation of CBC data. Current Interpretive Data was last revised on 2017. Blood 04/09/2022 3:56 PM OPEN DEVELOPER OPERATOR 04/09/2022 8:08 PM OPEN DEVELOPER OPERATOR Naif Munoz MD LAB BLOOD ORDERABLES Final Result Performing Organization Address [facility] Co de Phone Number [facility] [phone] [place] [address] * TSH reflex to free T4 (04/09/2022 3:56 PM OPEN DEVELOPER OPERATOR) TSH 1.53 0.30 - 4.20 mcIUnit/mL [facility] Blood 04/09/2022 3:56 PM OPEN DEVELOPER OPERATOR 04/09/2022 8:08 PM OPEN DEVELOPER OPERATOR Naif Munoz MD LAB BLOOD ORDERABLES Final Result Performing Organization Address [facility] Co de Phone Number [facility] [phone] [place] [place] [address] * Lipid panel (04/09/2022 3:56 PM OPEN DEVELOPER OPERATOR) Cholesterol 135 30 - 199 mg/dL [facility] Comment: Interpretive Data Ages < or = [...] Data was last revised on 2017. Triglycerides 117 <=149 mg/dL [facility] Comment: Interpretive Data Ages [...] Data was last revised on 2017. HDL 54 >=40 mg/dL [facility] Comment: Interpretive Data [...] was last revised on 2017. LDL, calculated 58 <=129 mg/dL [facility] Comment: Interpretive Data Ages < or = 19 years ??Acceptable: ? <110 mg/dL ??Borderline high: ??110-129 mg/dL ??High: ?>or= 130 mg/dL Ages > or = 20 years ??Optimal: ? <100 mg/dL ??Near optimal: ?100-129 mg/dL ??Borderline high: ?? 130-159 mg/dL ??High: ?>160 mg/dL Literature References: 1. Expert Panel on Integrated Guidelines for Cardiovascular Health and Risk Reduction in Children and Adolescents. Pediatrics 2011;128:S213 2. NCEP Expert Panel. Circulation 2004;110:227 Current Interpretive Data was last revised on 2017. Non-HDL Cholesterol 81 mg/dL [facility] Comment: Interpretive Data Ages < [...] was last revised on 2017. Chol/HDL ratio 2 [facility] Blood 04/09/2022 3:56 PM OPEN DEVELOPER OPERATOR 04/09/2022 8:08 PM OPEN DEVELOPER OPERATOR us Naif Munoz MD LAB BLOOD ORDERABLES Final Result Performing Organization Address City/[facility]/ZIP Co de Phone Number [facility] [phone] Department of [employer] [place] [phone] * Comprehensive metabolic panel (04/09/2022 3:56 PM OPEN DEVELOPER OPERATOR) Sodium 141 135 - 145 mmol/L [facility] Potassium, pl 4.2 3.3 - 4.9 mmol/L [facility] Chloride 100 97 - 110 mmol/L [facility] CO2 31 22 - 32 mmol/L [facility] Anion gap 10 2 - 15 mmol/L [facility] BUN 11 8 - 25 mg/dL [facility] Creatinine 0.88 0.80 - 1.30 mg/dL [facility] Glucose 107 70 - 199 mg/dL [facility] Comment: [...] interpretive data was last revised 2022. Calcium 9.9 8.5 - 10.3 mg/dL [facility] Bilirubin, total 0.4 0.1 - 1.2 mg/dL [facility] Protein, pl 7.3 6.5 - 8.5 g/dL [facility] Albumin 4.8 3.5 - 5.0 g/dL [facility] Alk phos 77 40 - 130 Units/L [facility] ALT 20 7 - 55 Units/L [facility] AST 29 10 - 50 Units/L [facility] Blood 04/09/2022 3:56 PM OPEN DEVELOPER OPERATOR 04/09/2022 8:08 PM OPEN DEVELOPER OPERATOR us Naif Munoz MD LAB BLOOD ORDERABLES Final Result Performing Organization Address City/[facility] Co de Phone Number [facility] [phone] Department [place] [address] * CBC with auto differential (04/09/2022 3:56 PM OPEN DEVELOPER OPERATOR) WBC 9.8 3.8 - 9.9 K/cumm [facility] Hgb 15.2 13.0 - 17.5 g/dL [facility] Hct 46.9 38.9 - 50.3 % [facility] Plt 302 150 - 400 K/cumm [facility] MPV 9.8 9.1 - 12.3 fL [facility] RBC 4.88 4.30 - 5.80 M/cumm [facility] MCV 96.1 81.3 - 96.4 fL [facility] MCH 31.1 27.1 - 33.3 pg [facility] MCHC 32.4 32.3 - 35.7 g/dL [facility] RDW CV 12.4 11.1 - 14.9 % [facility] RDW SD 43.8 35.7 - 48.1 fL [facility] NRBC abs 0.00 0.00 - 0.01 K/cumm [facility] Blood 04/09/2022 3:56 PM OPEN DEVELOPER OPERATOR 04/09/2022 8:08 PM OPEN DEVELOPER OPERATOR us Naif Munoz MD LAB BLOOD ORDERABLES Final Result [facility] [phone] Department [place] [address] documented in this encounter Visit Diagnoses Diagnosis Encounter for medical examination to establish care Screening, lipid Screening for thyroid disorder documented in this encounter Care Teams Junior Business Analyst Relationship Specialty Start Date End Date Naif Munoz MD [address] [facility] [address] [place] [address] PCP - General Family Medicine 04/09/22 documented as of this encounter
--- OUTSIDE RECORDS SUMMARY | 2024-03-08 10:40 | XMS_ITS | Encounter Summary ---
Author Organization [facility] Address [address] [place] [address] Care Team Providers Care Buffing And Sueding Machine Operator Name Role Phone Naif Munoz MD Primary Care Provider [phone] Reason for Visit * Reason Comments Follow-up F/u smoking Encounter Details Date Type Department Care Team (Late st Contact Info) Description 05/14/2022 3:15 PM CDT Office Visit [facility] Primary Care at [address] [address] Naif Munoz MD [address] [place] [address] [address] [place] [address] Tobacco use disorder, moderate, in early remission (Primary Dx) Social History Tobacco Use Types Packs/Day Years Used Date Smoking Tobacco: Former Cigarettes 0 05/07/2014 - 05/07/2022 Smokeless Tobacco: Never Tobacco Cessation:Counseling Given: [...] on file 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 Gender Identity Not on file Sexual Orientation Not on file 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 Not on file Not on file Not on file documented as of this encounter Last Filed Vital Signs Vital Sign Reading Time Taken Comments Blood Pressure 106/70 05/14/2022 3:30 PM CDT Pulse 88 05/14/2022 3:30 PM CDT Temperature 35.9 ??C (96.7 ??F) 05/14/2022 3:30 PM CD T Respiratory Rate 16 05/14/2022 3:30 PM CDT Oxygen Saturation 99% 05/14/2022 3:30 PM CDT Inhaled Oxygen Concentration - - Weight 71.2 kg (157 lb) 05/14/2022 3:30 PM CDT Height 175.3 cm (5' 9 ) 05/14/2022 3:30 PM CDT Body Mass Index 23.18 05/14/2022 3:30 PM CDT documented in this encounter Patient Instructions * Patient Instructions* Naif Munoz MD - 05/14/2022 3:15 PM CDT Continuing Chantix Thanks for coming in today! My medical assistants and I are thankful you have trusted us with your care, and hope that you received EXCELLENT care today! Please do not hesitate to call if you have any questions or concerns at [phone]. You may receive a phone call, text, MYCHART message, or e-mail asking about your care today. We would love to hear your feedback on how EXCELLENT your care wastoday! Wishing you better health, always. Dr. Munoz documented in this encounter Ordered Prescriptions Prescription Sig Dispense Quantity Refills Last Filled Start Date End Date hydrOXYzine (ATARAX) 25 mg tabletIndications: anxiety Take 1 tablet (25 mg total) by mouth 3 (three) times a day as needed for anxiety 30 tablet 1 05/14/2022 varenicline tartrate (CHANTIX) 1 mg tabletIndications: Smoking Cessation Take 1 tablet (1 mg total) by mouth 2 (two) times a day Take with full glass of water. 60 tablet 05/24/2022 3 documented in this encounter Progress Notes * Naif Munoz MD - 05/14/2022 3:15 PM CDT Images from the original note were not included. Subjective/Objective Patient ID: Tolu Gomez is a 26 y.o. male. Chief Complaint Follow-up (F/u smoking) Tolu presents for follow up on his smoking cessation therapy (Chantix). He reports that he has successfully quit smoking for the last 2 weeks. He had a mishap at work as well Saturday, sustained finger fracture from a crush injury from work equipment; this is being handled through workman's comp, but he did go to the ER Saturday, where a tuft fracture was seen on exam, and a significant laceration to the fingertip. Dressing changes are being done at work, and if nailbed doesn't recover will go to hand surgeon Current Outpatient Medications: acetaminophen-codeine (TYLENOL with CODEINE #4) 300-60 mg per tablet, Take 1 tablet by mouth every 6 (six) hours as needed for pain P.r.n. pain not relieved by naproxen alone. Take with food. Collaborating physician Seng Brothers MD, Disp: 20 tablet, Rfl: 0 cefadroxil (DURICEF) 500 mg capsule, Take 1 capsule (500 mg total) by mouth 2 (two) times a day for7 days Antibiotic to treat open fracture/crush wound of finger. Collaborating physician Seng Brothers MD, Disp: 14 capsule, Rfl: 0 mupirocin (BACTROBAN) 2 % ointment, Apply topically daily Apply with each dressing change. Collaborating physician Seng Brothers MD, Disp: 22 g, Rfl: 1 naproxen (NAPROSYN) 500 mg tablet, Take 1 tablet (500 mg total) by mouth 2 (two) times a day with meals P.r.n. pain and swelling. Collaborating physician Seng Brothers MD, Disp: 30 tablet, Rfl: 0 varenicline tartrate (Chantix Starting Month Box) 0.5 mg (11)- 1 mg (42) tablet, Take as per instructions; try to stop smoking entirely after 1st week, Disp: 53 tablet, Rfl: 0 Review of Systems Constitutional: Negative for chills, diaphoresis, fatigue and fever. Respiratory: Negative. Skin: Positive for wound. BP 106/70 (BP Location: Left arm, Patient Position: Sitting) Pulse 88 Temp (!) 35.9 ??C (96.7 ??F) (Temporal) Resp 16 Ht 175.3 cm (5' 9 ) Wt 71.2 kg (157 lb) SpO2 99% BMI 23.18 kg/m?? Physical Exam Vitals reviewed. Constitutional: Appearance: He is normal weight. Cardiovascular: Rate and Rhythm: Normal rate and regular rhythm. Pulmonary: Breath sounds: No wheezing, rhonchi or rales. Musculoskeletal: Comments: Hand in wrap Neurological: Mental Status: He is alert. Assessment/Plan Diagnoses and all orders for this visit: Tobacco use disorder, moderate, in early remission (Primary) Comments: refilled Chantix, 1 more month no side effects reported so far, doing well Other orders - varenicline tartrate (CHANTIX) 1 mg tablet; Take 1 tablet (1 mg total) by mouth 2 (two) times a day Take with full glass of water. - hydrOXYzine (ATARAX) 25 mg tablet; Take 1 tablet (25 mg total) by mouth 3 (three) times a day as needed for anxiety Naif Munoz MD This office note has been partially dictated using Thingies software, and as a result portions of the record may have been created with this software. Occasional wrong-word or '[id number]' substitutions may have occurred due to the inherent limitations of voice recognition software. Read the chartcarefully and recognize, using context, where substitutions have occurred. documented in this encounter Plan of Treatment Not on file documented as of this encounter Visit Diagnoses Diagnosis Tobacco use disorder, moderate, in early remission- Primary documented in this encounter Care Teams Buffing And Sueding Machine Operator Relationship Specialty Start Date End Date Naif Munoz MD [address] [facility] [address] [place] [address] PCP - General Family Medicine 04/09/22 documented as of this encounter
--- OUTSIDE RECORDS SUMMARY | 2024-03-08 10:40 | XMS_ITS | Encounter Summary ---
Author Organization [facility] Address [address] [place] [address] Care Team Providers Care Network Support Name Role Phone Naif Munoz MD Primary Care Provider [phone] Reason for Visit * Reason Comments Finger Laceration Encounter Details Date Type Department Care Team (Late st Contact Info) Description 05/10/2022 7:14 PM IT ACCOUNT MANAGER - 05/10/2022 8:57 PM IT ACCOUNT MANAGER Emergency 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 Not on file Not on file Not on file documented as of this encounter Last Filed Vital Signs Vital Sign Reading Time Taken Comments Blood Pressure 124/70 05/10/2022 7:18 PM IT ACCOUNT MANAGER Pulse 89 05/10/2022 7:18 PM IT ACCOUNT MANAGER Temperature 36.5 ??C (97.7 ??F) 05/10/2022 7:18 PM CS T Respiratory Rate 16 05/10/2022 7:18 PM IT ACCOUNT MANAGER Oxygen Saturation 100% 05/10/2022 7:18 PM IT ACCOUNT MANAGER Inhaled Oxygen Concentration - - Weight 63.5 kg (140 lb) 05/10/2022 7:14 PM IT ACCOUNT MANAGER Height 175.3 cm (5' 9 ) 05/10/2022 7:14 PM IT ACCOUNT MANAGER Body Mass Index 20.67 05/10/2022 7:14 PM IT ACCOUNT MANAGER documented in this encounter Discharge Instructions * Attachments The following attachments cannot be sent through Care Everywhere. * Fracture, Finger, Open (Chinese) * Crush Injury (AfterCare(R) Instructions(ER/ED)) (Chinese) documented in this encounter Medications at Time of Discharge cefadroxil (DURICEF) 500 mg capsuleIndicatio ns:Crushing injury of left little finger, initial encounter,Open fracture of tuft of distal phalanx of finger Take 1 capsule (500 mg total) by mouth 2 (two) times a day for 7 days Antibiotic to treat open fracture/crush wound of finger. Collaborating physician Seng Brothers MD 14 capsule 05/10/2022 3 acetaminophen-co deine (TYLENOL with CODEINE #4) 300-60 mg per tabletIndication s:Crushing injury of left little finger, initial encounter,Open fracture of tuft of distal phalanx of finger Take 1 tablet by mouth every 6 (six) hours as needed for pain P.r.n. pain not relieved by naproxen alone. Take with food. Collaborating physician Seng Brothers MD 20 tablet 05/10/2022 3 mupirocin (BACTROBAN) 2 % ointment Apply topically daily Apply with each dressing change. Collaborating physician Seng Brothers MD 22 g 1 05/10/2022 3 naproxen (NAPROSYN) 500 mg tablet Take 1 tablet (500 mg total) by mouth 2 (two) times a day with meals P.r.n. pain and swelling. Collaborating physician Seng Brothers MD 30 tablet 05/10/2022 3 varenicline tartrate (Chantix Starting Month Box) 0.5 mg (11)- 1 mg (42) tabletIndication s:Smoking Cessation Take as per instructions; try to stop smoking entirely after 1st week 53 tablet 04/09/2022 3 documented as of this encounter Ordered Prescriptions Prescription Sig Dispense Quantity Refills Last Filled Start Date End Date mupirocin (BACTROBAN) 2 % ointment Apply topically daily Apply with each dressing change. Collaborating physician Seng Brothers MD 22 g 1 05/10/2022 08/09/19 23 naproxen (NAPROSYN) 500 mg tablet Take 1 tablet (500 mg total) by mouth 2 (two) times a day with meals P.r.n. pain and swelling. Collaborating physician Seng Brothers MD 30 tablet 05/10/2022 08/09/19 23 cefadroxil (DURICEF) 500 mg capsuleIndication s:Crushing injury of left little finger, initial encounter,Open fracture of tuft of distal phalanx of finger Take 1 capsule (500 mg total) by mouth 2 (two) times a day for 7 days Antibiotic to treat open fracture/crush wound of finger. Collaborating physician Seng Brothers MD 14 capsule 05/10/2022 05/18/19 23 acetaminophen-cod eine (TYLENOL with CODEINE #4) 300-60 mg per tabletIndications :Crushing injury of left little finger, initial encounter,Open fracture of tuft of distal phalanx of finger Take 1 tablet by mouth every 6 (six) hours as needed for pain P.r.n. pain not relieved by naproxen alone. Take with food. Collaborating physician Seng Brothers MD 20 tablet 05/10/2022 08/09/19 23 documented in this encounter Discharge Disposition Disposition Code Departure Means Destination Comment s Discharge to home or self care documented in this encounter ED Notes * Henrry Corea PA - 05/10/2022 7:26 PM CST HPI Chief Complaint Patient presents with ??? Finger Laceration 26-year-old male with past medical history of tobacco use presents with chief complaint of crush injury to the left pinky finger. Around 6:10 p.m. this evening patient got his finger caught between acrane hook and a metal rack at work. Since then experiencing constant severe throbbing pain aggravated by movement and touch. Nothing alleviates it. Pain does not radiate. Denies loss of sensation orfunction. Cannot recall his last tetanus booster. Patient History: Patient Active Problem List Diagnosis Date Noted ??? Crushing injury of left little finger 05/10/2022 ??? Open fracture of tuft of distal phalanx of finger 05/10/2022 ??? Encounter for medical examination to establish care 04/10/2022 ??? Tobacco use disorder 04/09/2022 History reviewed. No pertinent past medical history. Past Surgical History: Procedure Laterality Date ??? WISDOM TOOTH EXTRACTION 2019 Family History Adopted: Yes Problem Relation Age of Onset ??? No Known Problems Mother ??? No Known Problems Father ??? Gallbladder disease Sister ??? No Known Problems Brother ??? No Known Problems Brother ??? No Known Problems Maternal Grandmother ??? No Known Problems Maternal Grandfather ??? No Known Problems Paternal Grandmother ??? No Known Problems Paternal Grandfather Social History Tobacco Use ??? Smoking status: Former Years: 8.00 Types: Cigarettes ??? Smokeless tobacco: Never Vaping Use ??? Vaping Use: Never used Substance and Sexual Activity ??? Alcohol use: Not Currently ??? Drug use: Yes Frequency: 1.0 times per week Types: Marijuana ??? Sexual activity: Yes Partners: Female Social History Social History Narrative ??? Not on file Review of Systems Review of Systems All other systems reviewed negative. All available allergies, past medical history, past surgical history, social history, and medications reviewed from the medical record, nursing notes, and with patient Physical Exam ED Triage Vitals Temp Pulse Resp BP SpO2 05/10/228 05/10/22191705/10/22191705/10/22191705/10/221917 36.5 ??C (97.7 ??F) 89 16 124/70 100 % Temp src Heart Rate Source Patient Position BP Location FiO2 (%) 05/10/221917 -- -- -- -- Oral Height Height Method Weight Weight Method 05/10/22191305/10/22191305/10/221913 -- 1.753 m (5' 9 ) Stated 63.5 kg (140 lb) Physical Exam Vitals and nursing note reviewed. Constitutional: General: He is not in acute distress. Appearance: Normal appearance. He is not ill-appearing, toxic-appearing or diaphoretic. HENT: Head: Normocephalic and atraumatic. Right Ear: External ear normal. Left Ear: External ear normal. Mouth/Throat: Pharynx: Oropharynx is clear. Cardiovascular: Rate and Rhythm: Normal rate and regular rhythm. Pulses: Normal pulses. Heart sounds: Normal heart sounds. Pulmonary: Effort: Pulmonary effort is normal. Breath sounds: Normal breath sounds. Musculoskeletal: Cervical back: Normal range of motion. Comments: Left pinky finger exam - diffuse swelling, ecchymosis, and laceration of the distal phalanx with partial avulsion of the nail plate from under the proximal nail fold. Intact motor and sensory throughout. Skin: General: Skin is warm and dry. Neurological: General: No focal deficit present. Mental Status: He is alert and oriented to person, place, and time. Psychiatric: Mood and Affect: Mood normal. Behavior: Behavior normal. Thought Content: Thought content normal. Judgment: Judgment normal. Wound repair: Left pinky finger exam reveals diffuse swelling, ecchymosis, and laceration of the distal phalanx with partial avulsion of the nail plate from under the proximal nail fold. Intact motorand sensory throughout. Cleansed with Restore Dermal Wound Cleanser. Digital block anesthesia achieved with lidocaine 1% 4 mL. Prepped and draped in usual fashion. Irrigated with copious amounts of sodium chloride 0.9% solution through 10 mL syringe and 18-gauge needle. Proximal 2/3 of the nail plate is avulsed from the nail bed. No laceration identified of the nail bed. Repositioned nail plate under proximal nail fold. Two interrupted sutures with 4-0 Vicryl Rapide used as a man/interrupted suture to secure nail plate under proximal nail fold. Trimmed away devitalized epidermis with iris scissors. Bacitracin Antibiotic ointment, Telfa, and Phan dressing applied. Applied metal foam splint. Patient tolerated well. Aseptic technique was utilized throughout procedure. Evaluation of the splint applied reveals excellent placement and proper immobilization. Exposed endof digits digits reveal good color. Voice recognition software [employer] Direct was used to dictate and transcribe this document. Placement Secretary variances may occur. Despite proofreading, typographical errors may occur. MDM Medical Decision Making Differential diagnosis: Tuft fracture, distal phalanx fracture, nail plate avulsion, nail bed laceration, nail fold laceration, foreign body. Emergency department plan: Ordered x-rays of left pinky finger. Digital block and repair. Ordered Tdap. Digit repaired and splinted. Amount and/or Complexity of Data Reviewed Radiology: ordered. Risk Prescription drug management. Risk Details: Discharge plan: Prescriptions for Tylenol with codeine, naproxen, mupirocin ointment,and Duricef sent to patient's preferred pharmacy. Patient to follow-up with occupational health tomorrow. Given contact information for plastic surgeon, Dr. Dorantes. Follow-up with plastic surgery if approved by employer. Return to emergency department if worse. ED Course as of 05/10/222102 Time: 05/10 2102 Comment: X-ray left pinky finger: Minimally displaced fracture of the tuft of the 5th distal phalanx. By: Henrry Corea PA Final diagnoses: Crushing injury of left little finger, initial encounter Open fracture of tuft of distal phalanx of finger Henrry Corea PA 05/10/222101 Cosigned by Ian Jerome MD at 05/10/2022 10:44 PM IT ACCOUNT MANAGER ACCOUNT MANAGER ACCOUNT MANAGER * Rachel Lambert RN - 05/10/2022 7:16 PM CST Pt amb steadily to er exam room by self. From work. Pt states he caught his finger between ervin hook and metal rack at work today at 1810. Crush injury noted to distal left 5th finger involving nail. No active bleeding noted to same. Denies any other injury. Left hand ^ ACCOUNT MANAGER documented in this encounter Plan of Treatment Not on file documented as of this encounter Procedures Procedure Name Priority Date/Time Associated Diagnosis Comments XR FINGER 5TH PINKY LEFT ED 05/10/2022 8:22 PM IT ACCOUNT MANAGER documented in this encounter Results * XR Finger 5th Pinky Left (05/10/2022 8:22 PM IT ACCOUNT MANAGER) Anatomical Region Laterality Modality Upper Extremities, Hand, Fingers Left Computed Radiography 05/10/2022 8:47 PM IT ACCOUNT MANAGER Narrative 05/10/2022 8:48 PM IT ACCOUNT MANAGER EXAM DESCRIPTION: ?? XR FINGER 5TH PINKY LEFT REASON FOR STUDY: ?? Crush injury distal phalanx left pinky finger ?? Around 6:10 p.m. this evening patient got his left 5th digit caught between a ervin hook and a metal rack at work. ??Since then experiencing constant severe throbbing pain aggravated by movement and touch. ?? Laceration to the distal area of the 5th digit on the left hand ?? TECHNIQUE: ?3 ??views acquired of the left ?? 5th digit COMPARISON: ?? None FINDINGS: Bandage material obscures detail. ??Minimally displaced oblique fracture of the tuft of the distal phalanx. ??No extension to the joint space is noted. ??Soft tissue irregularity is noted, obscured by bandage material. IMPRESSION: ?? 1. ?? Minimally displaced fracture of the tuft of the 5th distal phalanx. THIS IS AN ELECTRONICALLY VERIFIED FINAL REPORT 05/10/2022 8:48 PM - Electronically signed by ??Martinez Luevano M.D. AG: CHASE D: ??05/10/2022 8:48 PM T: ??05/10/2022 8:48 PM Report ID: [id number] Reading Location: ??[id number] Procedure Note Martinez Luevano MD - 05/10/2022 EXAM DESCRIPTION: XR FINGER 5TH PINKY LEFT REASON FOR STUDY: Crush injury distal phalanx left pinky finger Around 6:10 p.m. this evening patient got his left 5th digit caughtbetween a ervin hook and a metal rack at work. Since then experiencing constantsevere throbbing pain aggravated by movement and touch. Laceration to thedistal area of the 5th digit on the left hand TECHNIQUE: 3 views acquired of the left 5th digit COMPARISON: None FINDINGS: Bandage material obscures detail. Minimally displaced oblique fracture ofthe tuft of the distal phalanx. No extension to the joint space is noted.Soft tissue irregularity is noted, obscured by bandage material. IMPRESSION: 1. Minimally displaced fracture of the tuft of the 5th distal phalanx. THIS IS AN ELECTRONICALLY VERIFIED FINAL REPORT 05/10/2022 8:48 PM - Electronically signed by Martinez Luevano M.D. AG: AG Report ID: [id number] Reading Location: [id number] Henrry KIRBY IMG XR PROCEDURES Final Resu lt documented in this encounter Visit Diagnoses Diagnosis Crushing injury of left little finger, initial encounter- Primary Open fracture of tuft of distal phalanx of finger Amenorrhea Absence of menstruation Crushing injury of left little finger Open fracture of tuft of distal phalanx of finger documented in this encounter Care Teams Network Support Relationship Specialty Start Date End Date Naif Munoz MD [address] [facility] [address] [place] [address] PCP - General Family Medicine 04/09/22 documented as of this encounter
--- OUTSIDE RECORDS SUMMARY | 2024-03-08 10:40 | XMS_ITS | Encounter Summary ---
Author Organization [facility] Address [address] [facility] [address] [place] [address] Care Team Providers Care Retail Pharmacy Merchandiser Name Role Phone Naif Munoz MD Primary Care Provider [phone] Reason for Visit * Reason Comments New Patient New patient Encounter Details Date Type Department Care Team (Late st Contact Info) Description 04/09/2022 3:15 PM ANALYTICAL ENGINEER Office Visit [facility] Primary Care at [address] [address] Naif Munoz MD [address] [place] [address] [address] [place] [address] Encounter for medical examination to establish care (Primary Dx); Tobacco use disorder; Screening, lipid; Screening for thyroid disorder Social History Tobacco Use Types Packs/Day Years Used Date Smoking Tobacco: Every Day Cigarettes 0.3 8 Tobacco Cessation:Ready to Q uit: Not Asked; Counseling Given: Not Answered AUDIT-C Answer Date Recorded Q1: How often [...] on file Legal Sex Male 4:12 PM ANALYTICAL ENGINEER Gender Identity Not on file Sexual Orientation Not on file 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 Not on file Not on file Not on file documented as of this encounter Last Filed Vital Signs Vital Sign Reading Time Taken Comments Blood Pressure 114/70 04/09/2022 3:19 PM ANALYTICAL ENGINEER Pulse 85 04/09/2022 3:19 PM ANALYTICAL ENGINEER Temperature 37.6 ??C (99.6 ??F) 04/09/2022 3:19 PM CS T Respiratory Rate 16 04/09/2022 3:19 PM ANALYTICAL ENGINEER Oxygen Saturation 98% 04/09/2022 3:19 PM ANALYTICAL ENGINEER Inhaled Oxygen Concentration - - Weight 72.1 kg (159 lb) 04/09/2022 3:19 PM ANALYTICAL ENGINEER Height 175.3 cm (5' 9 ) 04/09/2022 3:19 PM ANALYTICAL ENGINEER Body Mass Index 23.48 04/09/2022 3:19 PM ANALYTICAL ENGINEER documented in this encounter Patient Instructions * Patient Instructions* Naif Munoz MD - 04/09/2022 3:15 PM ANALYTICAL ENGINEER Thanks for coming in today! My medical assistants and I are thankful you have trusted us with your care, and hope that you received EXCELLENT care today! Please do not hesitate to call if you have any questions or concerns at [phone]. You may receive a phone call, text, MYCHART message, or e-mail asking about your care today. We would love to hear your feedback on how EXCELLENT your care wastoday! Wishing you better health, always. Dr. Munoz YTICAL ENGINEER * Attachments The following attachments cannot be sent through Care Everywhere. * Wellness Visit for Adults (General Information) (Estonian) * How to Stop Smoking (General Information) (Estonian) documented in this encounter Ordered Prescriptions Prescription Sig Dispense Quantity Refills Last Filled Start Date End Date varenicline tartrate (Chantix Starting Month Box) 0.5 mg (11)- 1 mg (42) tabletIndications: Smoking Cessation Take as per instructions; try to stop smoking entirely after 1st week 53 tablet 04/09/2022 documented in this encounter Progress Notes * Naif Munoz MD - 04/09/2022 3:15 PM CST SUBJECTIVE: Tolu Gomez is a 26 y.o. male presenting today to establish care. Initially, he says he is doing pretty well, but his wants him to quit smoking. He also at the end of the visit noted that he had a history of mood disorder which she did not mention earlier visit. After he got out of the service, he had difficulty dealing with apparent symptoms of PTSD. No current outpatient medications on file. No current facility-administered medications for this visit. Allergies: Patient has no known allergies. History reviewed. No pertinent past medical history. Past Surgical History: Procedure Laterality Date WISDOM TOOTH EXTRACTION Family History Adopted: Yes Problem Relation Age of Onset No Known Problems Mother No Known Problems Father Gallbladder disease Sister No Known Problems Brother No Known Problems Brother No Known Problems Maternal Grandmother No Known Problems Maternal Grandfather No Known Problems Paternal Grandmother No Known Problems Paternal Grandfather Social History Tobacco Use Smoking status: Every Day Packs/day: 0.30 Years: 8.00 Pack years: 2.40 Types: Cigarettes Smokeless tobacco: None Substance and Sexual Activity Drug use: Yes Types: Marijuana Sexual activity: None Alcohol Use: Heavy Drinker Frequency of Alcohol Consumption: Monthly or less Average Number of Drinks: 5 or 6 Frequency of Binge Drinking: Less than monthly Review of Systems Constitutional: Negative. HENT: Negative. Eyes: Negative. Respiratory: Negative. Cardiovascular: Negative. Gastrointestinal: Negative. Genitourinary: Negative. Musculoskeletal: Negative. Skin: Negative. Neurological: Negative. Endo/Heme/Allergies: Negative. Psychiatric/Behavioral: Negative. Negative for depression. OBJECTIVE: BP 114/70 (BP Location: Left arm, Patient Position: Sitting) Pulse 85 Temp 37.6 ??C (99.6 ??F) (Temporal) Resp 16 Ht 175.3 cm (5' 9 ) Wt 72.1 kg (159 lb) SpO2 98% BMI 23.48 kg/m?? Physical Exam Vitals reviewed. Constitutional: Appearance: He is well-developed and normal weight. He is not ill-appearing. HENT: Head: Normocephalic and atraumatic. Right Ear: External ear normal. Left Ear: External ear normal. Mouth/Throat: Mouth: Mucous membranes are moist. Pharynx: Oropharynx is clear. Eyes: General: No scleral icterus. Conjunctiva/sclera: Conjunctivae normal. Pupils: Pupils are equal, round, and reactive to light. Neck: Vascular: No carotid bruit. Cardiovascular: Rate and Rhythm: Normal rate and regular rhythm. Heart sounds: Normal heart sounds. No murmur heard. No friction rub. No gallop. Pulmonary: Effort: Pulmonary effort is normal. Breath sounds: Normal breath sounds. Abdominal: General: Bowel sounds are normal. Palpations: Abdomen is soft. Hernia: There is no hernia in the left inguinal area or right inguinal area. Genitourinary: Penis: Circumcised. Testes: Right: Testicular hydrocele or varicocele not present. Left: Varicocele present. Testicular hydrocele not present. Epididymis: Right: Normal. Left: Normal. Musculoskeletal: General: Normal range of motion. Cervical back: Normal range of motion and neck supple. Right lower leg: No edema. Left lower leg: No edema. Skin: General: Skin is warm and dry. Neurological: Mental Status: He is alert and oriented to person, place, and time. Cranial Nerves: No cranial nerve deficit. Psychiatric: Mood and Affect: Mood normal. Behavior: Behavior normal. Diagnoses and all orders for this visit: Encounter for medical examination to establish care (Primary) Assessment & Plan: A(n) initial well visit to establish care has been performed today. Tolu Gomez is up to date on screening tests. He is in need of None- no screening indicated at this time. He is not up to date onneeded preventative vaccinations; He is in need of Tdap/Td, Pneumonia (Prevnar-13 or Pneumovax-23),HPV and Covid- 19 (booster). We discussed healthy lifestyle habits, educational material has been given. Medications reviewed, changes documented as per the medical record and discussed with patient along with risks vs benefits. Orders: - Comprehensive metabolic panel; Future - CBC with auto differential; Future Tobacco use disorder - varenicline tartrate (Chantix Starting Month Box) 0.5 mg (11)- 1 mg (42) tablet; Take as per instructions; try to stop smoking entirely after 1st week Screening, lipid - Lipid panel; Future Screening for thyroid disorder - TSH reflex to free T4; Future YTICAL ENGINEER documented in this encounter Miscellaneous Notes * Assessment & Plan Note - Naif uMnoz MD - 04/10/2022 12:18 PM ANALYTICAL ENGINEER Associated Problem(s): Encounter for medical examination to establish care A(n) initial well visit to establish care has been performed today. Tolu Gomez is up to date on screening tests. He is in need of None- no screening indicated at this time. He is not up to date onneeded preventative vaccinations; He is in need of Tdap/Td, Pneumonia (Prevnar-13 or Pneumovax-23),HPV and Covid- 19 (booster). We discussed healthy lifestyle habits, educational material has been given. Medications reviewed, changes documented as per the medical record and discussed with patient along with risks vs benefits. YTICAL ENGINEER documented in this encounter Plan of Treatment Not on file documented as of this encounter Results * CBC with auto differential (04/09/2022 3:56 PM ANALYTICAL ENGINEER) WBC 9.8 3.8 - 9.9 K/cumm [facility] Hgb 15.2 13.0 - 17.5 g/dL [facility] CH Hct 46.9 38.9 - 50.3 % [facility] CH Plt 302 150 - 400 K/cumm [facility] MPV 9.8 9.1 - 12.3 fL [facility] RBC 4.88 4.30 - 5.80 M/cumm [facility] MCV 96.1 81.3 - 96.4 fL [facility] MCH 31.1 27.1 - 33.3 pg [facility] MCHC 32.4 32.3 - 35.7 g/dL [facility] CH RDW CV 12.4 11.1 - 14.9 % [facility] CH RDW SD 43.8 35.7 - 48.1 fL [facility] NRBC abs 0.00 0.00 - 0.01 K/cumm [facility] CH Blood 04/09/2022 3:56 PM ANALYTICAL ENGINEER 04/09/2022 8:08 PM ANALYTICAL ENGINEER us Naif Munoz MD LAB BLOOD ORDERABLES Final Result [facility] [address] Department [place] [address] * Comprehensive metabolic panel (04/09/2022 3:56 PM ANALYTICAL ENGINEER) Sodium 141 135 - 145 mmol/L CERNER [...] Units/L [facility] CH Blood 04/09/2022 3:56 PM ANALYTICAL ENGINEER 04/09/2022 8:08 PM ANALYTICAL ENGINEER Naif Munoz MD LAB BLOOD ORDERABLES Final Result [facility] [address] [facility] Department [place] [address] * Lipid panel (04/09/2022 3:56 PM ANALYTICAL ENGINEER) Cholesterol 135 30 - 199 mg/dL [facility] BLAIR Comment: Interpretive Data Ages [...] on 2017. HDL 54 >=40 mg/dL [facility] Comment: Interpretive Data Ages [...] on 2017. LDL, calculated 58 <=129 mg/dL [facility] Comment: Interpretive Data Ages < [...] revised on 2017. Chol/HDL ratio 2 [facility] CH Blood 04/09/2022 3:56 PM ANALYTICAL ENGINEER 04/09/2022 8:08 PM ANALYTICAL ENGINEER Naif Munoz MD LAB BLOOD ORDERABLES Final Result Performing Organization Address City/[facility] Co de Phone Number [facility] [address] [place] [address] * TSH reflex to free T4 (04/09/2022 3:56 PM ANALYTICAL ENGINEER) TSH 1.53 0.30 - 4.20 mcIUnit/mL [facility] CH Blood 04/09/2022 3:56 PM ANALYTICAL ENGINEER 04/09/2022 8:08 PM ANALYTICAL ENGINEER Naif Munoz MD LAB BLOOD ORDERABLES Final Result Performing Organization Address [facility] de Phone Number CLAUDIO [address] [employer] [place] [address] documented in this encounter Visit Diagnoses Diagnosis Encounter for medical examination to establish care- Primary Tobacco use disorder Screening, lipid Screening for thyroid disorder documented in this encounter Care Teams Retail Pharmacy Merchandiser Relationship Specialty Start Date End Date Naif Munoz MD [facility] ADELINE BAIN [facility] [address] [place] [address] PCP - General Family Medicine 04/09/22 documented as of this encounter
--- OUTSIDE RECORDS SUMMARY | 2024-03-08 10:40 | XMS_ITS | Encounter Summary ---
Author Organization [facility] Medical Group Address [address] [facility] [address] [place] [address] Care Team Providers Care Employment And Claims Aide Name Role Phone Naif Munoz MD Primary Care Provider [phone] Reina Smyth NP Unavailable [phone] Reason for Visit * Reason Onset Date Comments Appointment Request 08/06/2022 Encounter Details Date Type Department Care Team (Late st Contact Info) Description 08/06/2022 Telephone [facility] Primary Care at [address] [address] Naif Munoz MD [address] [place] [address] [address] [place] [address] Appointment Request Social History Tobacco Use Types Packs/Day Years Used Date Smoking Tobacco: Former Cigarettes 0 05/07/2014 - 05/07/2022 Smokeless Tobacco: Never Alcohol Use Standard [...] on file Legal Sex Male 4:12 PM ENVIRONMENTAL SPECIALIST Gender Identity Not on file Sexual Orientation Not on file 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 He went to [place] and then was transferred to [place] for 3 day. Tried to call and get the medical records but the departments are closed. Will try again in the morning. * Telephone Encounter - Viral Collado - 08/07/2022 1:58 PM CDT Patient was called and has been scheduled for a f/u with Dr. Munoz on 08/08/22. Thank you * Telephone Encounter - Viral Collado - 08/06/2022 5:03 PM CDT Called the patient back to schedule a f/u visit for return to work. No way to leave a message. Willcall again tomorrow to set up f/u. If patient calls back please transfer to Viral Singh Thank you * Telephone Encounter - Shellie Hensley - 08/06/2022 3:12 PM CDT Appointment Request What visit type does the patient need? Visit Type: Established Patient What is the reason for the visit? He is needing to be medically cleared to return to work after an attempted suicide. What is the reason we were unable to schedule the appointment? Current appointment availability didnot meet patient's need. If applicable, were all members of the patient's PCP care team offered (e.g., nurse practioner(s), physician assistant import manager(s)) ? Yes Caller's Callback #: [phone] (patient) Additional Comments: none Does message need to be routed? Yes-Action Needed documented in this encounter Plan of Treatment Not on file documented as of this encounter Visit Diagnoses Not on filedocumented in this encounter Care Teams Employment And Claims Aide Relationship Specialty Start Date End Date Naif Munoz MD [address] [place] [address] PCP - General Family Medicine 04/09/22 Reina Smyth NP [address] [place] [address] ERICKA MARTE [address] Nurse Practitioner Psychiatry 08/07/22 documented as of this encounter
--- OUTSIDE RECORDS SUMMARY | 2024-03-08 10:40 | XMS_ITS | Encounter Summary ---
Author Organization [facility] Medical Group Address [address] [facility] [address] [place] [address] Care Team Providers Care Test Case Developer Name Role Phone Naif Munoz MD Primary Care Provider [phone] Encounter Details Date Type Department Care Team (Late st Contact Info) Description 04/09/2022 4:15 PM STOCKROOM ASSOCIATE Lab [facility] Outpatient Lab at [address] [address] Encounter for medical examination to establish care Social History Tobacco Use Types Packs/Day [...] on file Legal Sex Male 4:12 PM STOCKROOM ASSOCIATE Gender Identity Not on file Sexual Orientation Not on file 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
--- OUTSIDE RECORDS SUMMARY | 2024-03-08 10:40 | XMS_ITS | Encounter Summary ---
Author Organization [facility] Medical Group Address [address] [facility] [address] [place] [address] Care Team Providers Care Printing Manager Name Role Phone Naif Munoz MD Primary Care Provider [phone] Encounter Details Date Type Department Care Team (Late st Contact Info) Description 04/13/2022 Telephone [facility] Medical [facility] Primary Care at [address] [address] Mihaela Roger MA Social History Tobacco Use Types Packs/Day Years [...] on file Legal Sex Male 4:12 PM RN RESIDENTIAL Gender Identity Not on file Sexual Orientation Not on file 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 file Not on file Not on file documented as of this encounter Miscellaneous Notes * Telephone Encounter - Mihaela Roger MA - 04/13/2022 5:46 PM RN RESIDENTIAL Spoke to pt, informed pt of results, pt voiced understanding RESIDENTIAL * Telephone Encounter - Mihaela Roger MA - 04/13/2022 5:46 PM RN RESIDENTIAL ----- Message from Naif Munoz MD sent at 04/10/2022 12:20 PM RN RESIDENTIAL ----- Please relay: Labs look pretty good RESIDENTIAL documented in this encounter Plan of Treatment Not on file documented as of this encounter Visit Diagnoses Not on filedocumented in this encounter Care Teams Printing Manager Relationship Specialty Start Date End Date Naif Munoz MD [address] [facility] [address] [place] [address] PCP - General Family Medicine 04/09/22 documented as of this encounter
--- OUTSIDE RECORDS SUMMARY | 2024-03-08 12:22 | XMS_ITS | Clinical Summary ---
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
--- OUTSIDE RECORDS SUMMARY | 2024-03-08 12:22 | XMS_ITS | Encounter Summary ---
Author Organization [facility] Healthcare Address [address] [place] [address] Care Team Providers Care Individualized Education Plan Aide Name Role Phone Naif Munoz MD Primary Care Provider [phone] Reina Smyth NP Unavailable [phone] Reason for Visit * Reason Onset Date Comments f/u appt request 12/03/2022 Encounter Details Date Type Department Care Team (Late st Contact Info) Description 12/03/2022 Telephone [facility] Medical Group Primary Care at [address] [address] Naif Munoz MD [address] [place] [address] [address] [place] [address] f/u appt request Social History [...] on file Legal Sex Male 4:12 PM KITCHEN WORKER Gender Identity Not on file Sexual Orientation Not on file 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
--- OUTSIDE RECORDS SUMMARY | 2024-03-08 12:22 | XMS_ITS | Encounter Summary ---
Author Organization [facility] Medical Group Address [address] [facility] [address] [place] [address] Care Team Providers Care Crabbing Machine Operator Name Role Phone Naif Munoz MD Primary Care Provider [phone] Reina Smyth NP Unavailable [phone] Reason for Visit * Reason Onset Date Comments Medical Question/Miscellaneous 08/08/2022 Encounter Details Date Type Department Care Team (Late st Contact Info) Description 08/08/2022 Telephone [facility] Primary Care at [address] [address] Naif Munoz MD [address] [place] [address] [address] [place] [address] Medical Question/Miscellaneous Social History Tobacco [...] on file Legal Sex Male 4:12 PM MBA INTERN Gender Identity Not on file Sexual Orientation Not on file 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 Caller???s Call back #: [phone] Does message need to be routed? No [...] done as possible. Caller???s Call back #: [phone] Does message need to be routed? Yes-Action Needed documented in this encounter Plan of Treatment Not on file documented as of this encounter Visit Diagnoses Not on filedocumented in this encounter Care Teams Crabbing Machine Operator Relationship Specialty Start Date End Date Naif Munoz MD [address] [facility] [address] [place] [address] PCP - General Family Medicine 04/09/22 Reina Smyth NP [address] [place] [address] ERICKA MARTE [address] Nurse Practitioner Psychiatry 08/07/22 documented as of this encounter
--- OUTSIDE RECORDS SUMMARY | 2024-03-08 12:22 | XMS_ITS | Encounter Summary ---
Author Organization [facility] Medical Group Address [address] [facility] [address] [place] [address] Care Team Providers Care Entertainment Production Professional Name Role Phone Naif Munoz MD Primary Care Provider [phone] Reina Smyth NP Unavailable [phone] Reason for Visit * Reason Onset Date Comments Appointment Request 08/06/2022 Encounter Details Date Type Department Care Team (Late st Contact Info) Description 08/06/2022 Telephone [facility] Medical Group Primary Care at [address] [address] Naif Munoz MD [address] [place] [address] [address] [place] [address] Appointment Request Social History Tobacco [...] on file Legal Sex Male 4:12 PM THREADING MACHINE SETTER Gender Identity Not on file Sexual Orientation Not on file 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 He went to [place] and then was transferred to [place] for 3 day. Tried to call and [...] care team offered (e.g., nurse practioner(s), physician preschool assistant principal(s)) ? Yes Caller's Callback #: [phone] (patient) Additional Comments: none Does message need to be routed? Yes-Action Needed documented in this encounter Plan of Treatment Not on file documented as of this encounter Visit Diagnoses Not on filedocumented in this encounter Care Teams Entertainment Production Professional Relationship Specialty Start Date End Date Naif Munoz MD [address] [place] [address] PCP - General Family Medicine 04/09/22 Reina Smyth NP [address] [place] [address] ERICKA MARTE [address] Nurse Practitioner Psychiatry 08/07/22 documented as of this encounter
--- OUTSIDE RECORDS SUMMARY | 2024-03-08 12:22 | XMS_ITS | Encounter Summary ---
Author Organization [facility] Medical [facility] Address [address] [facility] [address] [place] [address] Care Team Providers Care Engineer Assistant Name Role Phone Naif Munoz MD Primary Care Provider [phone] Reina Smyth NP Unavailable [phone] Reason for Visit * Reason Comments Follow-up Pt is here for a 4 w k f/u. Encounter Details Date Type Department Care Team (Late st Contact Info) Description 10/10/2022 11:00 AM CDT Office Visit 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 You may receive a phone call, text, [...] office note has been partially dictated using WebRadar software, and as a result portions of the record may have been created with this software. Occasional wrong-word or '[id number]' substitutions may have occurred due to the [...] 10/29/2023 added in this encounter Care Teams Engineer Assistant Relationship Specialty Start Date End Date Naif Munoz MD [address] [facility] [address] [place] [address] PCP - General Family Medicine 04/09/22 Reina Smyth NP [address] [place] [address] ERICKA MARTE [address] Nurse Practitioner Psychiatry 08/07/22 documented as of this encounter
--- OUTSIDE RECORDS SUMMARY | 2024-03-08 12:22 | XMS_ITS | Referral Summary ---
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
--- OUTSIDE RECORDS SUMMARY | 2024-03-08 12:22 | XMS_ITS | Encounter Summary ---
Author Organization [facility] Healthcare Address [address] [place] [address] Care Team Providers Care Building Trades Instructor Name Role Phone Naif Munoz MD Primary Care Provider [phone] Reina Smyth [employer]IC [employer] EQUIPMENT Unavailable [phone] Encounter Details Date Type Department Care Team (Late st Contact Info) Description 10/29/2023 3:45 PM CDT Lab [facility] Outpatient Lab at [address] [address] Annual physical exam (Primary Dx) [...] on file Legal Sex Male 4:12 PM THERAPY ADMINISTRATIVE ASSISTANT Gender Identity Not on file Sexual Orientation Not on file 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
--- OUTSIDE RECORDS SUMMARY | 2024-03-08 12:22 | XMS_ITS | Encounter Summary ---
Author Organization [facility] Address [address] [facility] [address] [place] [address] Care Team Providers Care Upholstery Estimator Name Role Phone Naif Munoz MD Primary Care Provider [phone] Reina Smyth NP Unavailable [phone] Reason for Visit * Reason Comments Follow-up Pt is here to discus s returning to work. 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 You may receive a phone call, text, MYCHART message, or e-mail asking about your care today. We would love to hear your feedback on how EXCELLENT your care wastoday! Wishing you better health, always. Dr. Munoz * Attachments The following attachments cannot be sent through Care Everywhere. * Depressive Disorder in Adolescents (General Information) (Latvian) * Escitalopram (By mouth) (Latvian) documented in this encounter Ordered Prescriptions Prescription [...] with the attempt. He was taken to [facility] ER on 07/16 after ingesting 30 Excedrin [...] office note has been partially dictated using Insuritas software, and as a result portions of the record may have been created with this software. Occasional wrong-word or '[id number]' substitutions may have occurred due to the [...] documented as of this encounter Care Teams Upholstery Estimator Relationship Specialty Start Date End Date Naif Munoz MD [facility] [address] [place] [address] PCP - General Family Medicine 04/09/22 Reina Smyth NP [address] [facility] ERICKA MARTE [address] Nurse Practitioner Psychiatry 08/07/22 documented as of this encounter
--- OUTSIDE RECORDS SUMMARY | 2024-03-08 12:22 | XMS_ITS | Encounter Summary ---
Author Organization [facility] Healthcare Address [address] [place] [address] Care Team Providers Care Heavy Truck Technician Name Role Phone Naif Munoz MD Primary Care Provider [phone] Reina Smyth EP SPECIALIST Unavailable [phone] Encounter Details Date Type Department Care Team (Latest Contact Info) Description 10/29/2023 8:22 PM CDT - 10/29/2023 11:59 PM CDT [place] [address] Annual physical exam; Screening, lipid Discharge Disposition: [...] on file Legal Sex Male 4:12 PM BODY SHOP SUPERVISOR Gender Identity Not on file Sexual Orientation Not on file 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 Not on file Not on file [...] Munoz MD LAB BLOOD ORDERABLES Final Result [facility] [id number] [address] Department [place] [address] * Differential, auto (10/29/2023 4:00 PM CDT) Neutrophil abs 4.4 1.5 - 6.5 K/cumm Imm gran abs 0.0 0.0 - 0.1 K/cumm [facility] Lymphocyte abs 2.4 0.8 - 3.3 K/cumm [facility] Monocyte abs 0.3 0.2 - 0.8 K/cumm [facility] Eosinophil abs 0.1 0.0 - 0.5 K/cumm [facility] Basophil abs 0.0 0.0 - 0.1 K/cumm [facility] Neutrophil pct 60.8 % [facility] Comment: Interpretive Data Percent cell count reference [...] MD LAB BLOOD ORDERABLES Final Result [facility] [address] [address] Department of Laboratories [place], [place] [id number] * Lipid panel (10/29/2023 4:00 PM CDT) [...] MD LAB BLOOD ORDERABLES Final Result [facility] [address] [address] Department [place] [address] * Comprehensive metabolic panel (10/29/2023 4:00 PM [...] BLOOD ORDERABLES Final Result Performing Organization Address [facility] de Phone Number CLAUDIO BLAIR [address] Jessica Department [place] [address] * CBC with auto differential (10/29/2023 4:00 PM CDT) WBC 7.2 3.8 - 9.9 K/cumm Hgb 14.3 13.0 - 17.5 g/dL [facility] CH Hct 43.1 38.9 - 50.3 % [facility] CH Plt 257 150 - 400 K/cumm [facility] CH MPV 9.9 9.1 - 12.3 fL [facility] RBC 4.49 4.30 - 5.80 M/cumm [facility] CH MCV 96.0 81.3 - 96.4 fL [facility] CH MCH 31.8 27.1 - 33.3 pg [facility] MCHC 33.2 32.3 - 35.7 g/dL [facility] CH RDW CV 11.9 11.1 - 14.9 % [facility] CH RDW SD 41.9 35.7 - 48.1 fL [facility] NRBC abs 0.00 0.00 - 0.01 K/cumm [facility] CH Blood 10/29/2023 4:00 PM CDT 10/29/2023 8:37 PM CDT Naif Munoz MD LAB BLOOD ORDERABLES Final Result Performing Organization Address [facility] Co wa Phone Number CLAUDIO BLAIR [address] [address] Department [place] [address] documented in this encounter Visit Diagnoses Diagnosis Annual physical exam Routine general medical examination at a health care facility Screening, lipid documented in this encounter Care Teams Heavy Truck Technician Relationship Specialty Start Date End Date Naif Munoz MD [address] [place] [address] PCP - General Family Medicine 04/09/22 Reina Smyth NP [address] [place] [address] ERICKA MARTE [address] Nurse Practitioner Psychiatry 08/07/22 documented as of this encounter
--- OUTSIDE RECORDS SUMMARY | 2024-03-08 12:22 | XMS_ITS | Encounter Summary ---
Author Organization [facility] Healthcare Address [address] [place] [address] Care Team Providers Care Accountant Budget Name Role Phone Nafi Munoz MD Primary Care Provider [phone] Reina Smyth NP Unavailable [phone] Reason for Visit * Reason Comments Follow-up 6 month f/u Encounter Details Date Type Department Care Team (Late st Contact Info) Description 10/29/2023 3:15 PM CDT Office Visit [facility] Primary Care at [address] [address] Naif Munoz MD [address] [place] [address] [address] [place] [address] Annual physical exam (Primary Dx); [...] on file Legal Sex Male 4:12 PM ERP DEVELOPER Gender Identity Not on file Sexual Orientation Not on file 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 You may receive a phone call, text, MYCHART message, or e-mail asking about your care today. We would love to hear your feedback on how EXCELLENT your care wastoday! Wishing you better health, always. Dr. Munoz * Attachments The following attachments cannot be sent through Care Everywhere. * Hemorrhoids (Saddle Tree Stitcher) (Equatorial Guinean) documented in this encounter Ordered Prescriptions Prescription [...] normal. Neck supple. No adenopathy or thyromegaly. ANGEL. Lungs are clear, good air entry, no [...] Munoz MD LAB BLOOD ORDERABLES Final Result [facility] [address] [address]ain Department [place] [address] * Comprehensive metabolic panel (10/29/2023 4:00 PM [...] [place] [address] [address]ain Department [place] [address] * Lipid panel (10/29/2023 4:00 PM CDT) [...] LAB BLOOD ORDERABLES Final Result [facility] BLAIR [address] [address] Department [place] [address] documented in this encounter Visit [...] 10/25/2023 added in this encounter Care Teams Accountant Budget Relationship Specialty Start Date End Date Naif Munoz MD [address] [id number] PCP - General Family Medicine 04/09/22 Reina Smyth NP [address] [place] [address] ERICKA MARTE [address] Nurse Practitioner Psychiatry 08/07/22 documented as of this encounter
--- OUTSIDE RECORDS SUMMARY | 2024-03-08 12:23 | XMS_ITS | Encounter Summary ---
Author Organization [facility] Healthcare Address [address] [place] [address] Care Team Providers Care Center Medical And Lab Director Name Role Phone Naif Munoz MD Primary Care Provider [phone] Encounter Details Date Type Department Care Team (Latest Contact Info) Description 04/09/2022 3:56 PM SHUTTLECOCK FEATHER TRIMMER - 04/09/2022 11:59 PM SHUTTLECOCK FEATHER TRIMMER Hospital Encounter [address] [address] Encounter for medical examination to [...] on file Legal Sex Male 4:12 PM SHUTTLECOCK FEATHER TRIMMER Gender Identity Not on file Sexual Orientation Not on file 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 Not on file [...] Diagnosis Comments EGFR Routine 04/09/2022 3:56 PM SHUTTLECOCK FEATHER TRIMMER Encounter for medical examination to establish care DIFFERENTIAL AUTO Routine 04/09/2022 3:5 6 PM SHUTTLECOCK FEATHER TRIMMER Encounter for medical examination to establish care THYROID FUNCTION CASCADE Routine 04/09/2022 3:56 PM SHUTTLECOCK FEATHER TRIMMER Screening for thyroid disorder CBC WITH AUTO DIFFERENTIAL Routine 04/09/2022 3:56 PM SHUTTLECOCK FEATHER TRIMMER Encounter for medical examination to establish care LIPID PANEL Routine 04/09/2022 3:56 PM SHUTTLECOCK FEATHER TRIMMER Screening, lipid COMPREHENSIVE METABOLIC PANEL Routine 04/09/2022 3:56 PM SHUTTLECOCK FEATHER TRIMMER Encounter for medical examination to establish care documented in this encounter Results * eGFR (04/09/2022 3:56 PM SHUTTLECOCK FEATHER TRIMMER) [facility] eGFR 123 mL/min/1. 73 m2 CLAUDIO [...] last reviewed 2021. Blood 04/09/2022 3:56 PM SHUTTLECOCK FEATHER TRIMMER 04/09/2022 8:37 PM SHUTTLECOCK FEATHER TRIMMER us Naif Munoz MD LAB BLOOD ORDERABLES Final Result [facility] [address] [address]ain Department [place] [address] * (ABNORMAL) Differential, auto (04/09/2022 3:56 PM SHUTTLECOCK FEATHER TRIMMER) Neutrophil abs 6.7(H) 1.7 - 6.5 K/cumm [facility] gran abs 0.0 0.0 - 0.1 K/cumm [facility] Lymphocyte abs 2.4 0.8 - 3.3 K/cumm [facility] Monocyte abs 0.5 0.2 - 0.8 K/cumm [facility] Eosinophil abs 0.1 0.0 - 0.5 K/cumm [facility] Basophil abs 0.1 0.0 - 0.1 K/cumm [facility] Neutrophil pct 68.7 % [facility] Comment: Interpretive Data Percent cell count reference [...] revised on 2017. Lymphocyte pct 24.3 % [facility] Comment: Interpretive Data Percent cell count reference [...] revised on 2017. Blood 04/09/2022 3:56 PM SHUTTLECOCK FEATHER TRIMMER 04/09/2022 8:08 PM SHUTTLECOCK FEATHER TRIMMER Naif Munoz MD LAB BLOOD ORDERABLES Final Result Performing Organization Address [facility] Co de Phone Number [facility] [address] [address] Department [place] [address] * TSH reflex to free T4 (04/09/2022 3:56 PM SHUTTLECOCK FEATHER TRIMMER) TSH 1.53 0.30 - 4.20 mcIUnit/mL [facility] Blood 04/09/2022 3:56 PM SHUTTLECOCK FEATHER TRIMMER 04/09/2022 8:08 PM SHUTTLECOCK FEATHER TRIMMER Naif Munoz MD LAB BLOOD ORDERABLES Final Result Performing Organization Address [facility] Co de Phone Number [facility] [address] [address] Department [place] [address] * Lipid panel (04/09/2022 3:56 PM SHUTTLECOCK FEATHER TRIMMER) Cholesterol 135 30 - 199 mg/dL [facility] Comment: Interpretive Data Ages < or = [...] ratio 2 [facility] Blood 04/09/2022 3:56 PM SHUTTLECOCK FEATHER TRIMMER 04/09/2022 8:08 PM SHUTTLECOCK FEATHER TRIMMER us Naif Munoz MD LAB BLOOD ORDERABLES Final Result Performing Organization Address City/[facility]/ZIP Co de Phone Number CLAUDIO BLAIR [address] [address]ain Department of MAINtag [place] [phone] * Comprehensive metabolic panel (04/09/2022 3:56 PM SHUTTLECOCK FEATHER TRIMMER) Sodium 141 135 - 145 mmol/L [facility] [...] Units/L [facility] Blood 04/09/2022 3:56 PM SHUTTLECOCK FEATHER TRIMMER 04/09/2022 8:08 PM SHUTTLECOCK FEATHER TRIMMER us Naif Munoz MD LAB BLOOD ORDERABLES Final Result Performing Organization Address City/[facility] Co de Phone Number CLAUDIO BLAIR [address] [address]ain Department [place] [address] * CBC with auto differential (04/09/2022 3:56 PM SHUTTLECOCK FEATHER TRIMMER) WBC 9.8 3.8 - 9.9 K/cumm [facility] [...] K/cumm [facility] CH Blood 04/09/2022 3:56 PM SHUTTLECOCK FEATHER TRIMMER 04/09/2022 8:08 PM SHUTTLECOCK FEATHER TRIMMER us Naif Munoz MD LAB BLOOD ORDERABLES Final Result [facility] [address] [address]ain Department [place] [address] documented in this encounter Visit Diagnoses Diagnosis Encounter for medical examination to establish care Screening, lipid Screening for thyroid disorder documented in this encounter Care Teams Center Medical And Lab Director Relationship Specialty Start Date End Date Naif Munoz MD [address] [facility] [address] [place] [address] PCP - General Family Medicine 04/09/22 documented as of this encounter
--- OUTSIDE RECORDS SUMMARY | 2024-03-08 12:23 | XMS_ITS | Encounter Summary ---
Author Organization [facility] Address [address] [facility] [address] [place] [address] Care Team Providers Care Plastic Design Applier Name Role Phone Naif Munoz MD Primary Care Provider [phone] Encounter Details Date Type Department Care Team (Late st Contact Info) Description 04/09/2022 4:15 PM KILN REPAIRER Lab [facility] Outpatient Lab at [address] [address] Encounter for medical examination to [...] on file Legal Sex Male 4:12 PM KILN REPAIRER Gender Identity Not on file Sexual Orientation Not on file 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
--- OUTSIDE RECORDS SUMMARY | 2024-03-08 12:23 | XMS_ITS | Encounter Summary ---
Author Organization [facility] Address [address] [facility] [address] [place] [address] Care Team Providers Care Coding Specialist Name Role Phone Naif Munoz MD Primary Care Provider [phone] Reason for Visit * Reason Comments Follow-up F/u smoking Encounter Details Date Type Department Care Team (Late st Contact Info) Description 05/14/2022 3:15 PM CDT Office Visit [facility] Primary Care at [address] [address] Naif Munoz MD [address] [place] [address] [address] [place] [address] Tobacco use disorder, moderate, in [...] on file Legal Sex Male 4:12 PM BRICK DROPPER Gender Identity Not on file Sexual Orientation Not on file 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 You may receive a phone call, text, [...] office note has been partially dictated using ZIIBRA software, and as a result portions of the record may have been created with this software. Occasional wrong-word or 'yrfgs-i-[id number]' substitutions may have occurred due to the inherent limitations of voice recognition software. Read the chartcarefully and recognize, using context, where substitutions have occurred. documented in this encounter Plan of Treatment Not on file documented as of this encounter Visit Diagnoses Diagnosis Tobacco use disorder, moderate, in early remission- Primary documented in this encounter Care Teams Coding Specialist Relationship Specialty Start Date End Date Naif Munoz MD [address] [facility] [address] [place] [address] PCP - General Family Medicine 04/09/22 documented as of this encounter
--- OUTSIDE RECORDS SUMMARY | 2024-03-08 12:23 | XMS_ITS | Encounter Summary ---
Author Organization [facility] Healthcare Address [address] [place] [address] Care Team Providers Care Mine Superintendent Name Role Phone Naif Munoz MD Primary Care Provider [phone] Reason for Visit * Reason Comments Finger Laceration Encounter Details Date Type Department Care Team (Late st Contact Info) Description 05/10/2022 7:14 PM MANAGER URGENT CARE - 05/10/2022 8:57 PM MANAGER URGENT CARE Emergency [facility] Emergency Department [address] [place] [id number] Crushing injury of left little finger, initial [...] on file Legal Sex Male 4:12 PM MANAGER URGENT CARE Gender Identity Not on file Sexual Orientation Not on file 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 Not on file Not on file documented as of this encounter Last Filed Vital Signs Vital Sign Reading Time Taken Comments Blood Pressure 124/70 05/10/2022 7:18 PM MANAGER URGENT CARE Pulse 89 05/10/2022 7:18 PM MANAGER URGENT CARE Temperature 36.5 ??C (97.7 ??F) 05/10/2022 7:18 PM CS T Respiratory Rate 16 05/10/2022 7:18 PM MANAGER URGENT CARE Oxygen Saturation 100% 05/10/2022 7:18 PM MANAGER URGENT CARE Inhaled Oxygen Concentration - - Weight 63.5 kg (140 lb) 05/10/2022 7:14 PM MANAGER URGENT CARE Height 175.3 cm (5' 9 ) 05/10/2022 7:14 PM MANAGER URGENT CARE Body Mass Index 20.67 05/10/2022 7:14 PM MANAGER URGENT CARE documented in this encounter Discharge Instructions * Attachments The following attachments cannot be sent through Care Everywhere. * Fracture, Finger, Open (Paraguayan) * Crush Injury (AfterCare(R) Instructions(ER/ED)) (Paraguayan) documented in this encounter Medications at Time [...] digits reveal good color. Voice recognition software CloudSafe Direct was used to dictate and transcribe this document. Auto Refinisher variances may occur. Despite proofreading, typographical errors [...] Ian Jerome MD at 05/10/2022 10:44 PM MANAGER URGENT CARE GER URGENT CARE GER URGENT CARE * Rachel Lambert RN - 05/10/2022 7:16 PM CST Pt amb steadily to er exam room by self. From work. Pt states he caught his finger between ervin hook and metal rack at work today at 1810. Crush injury noted to distal left 5th finger involving nail. No active bleeding noted to same. Denies any other injury. Left hand ^ GER URGENT CARE documented in this encounter Plan of Treatment Not on file documented as of this encounter Procedures Procedure Name Priority Date/Time Associated Diagnosis Comments XR FINGER 5TH PINKY LEFT ED 05/10/2022 8:22 PM MANAGER URGENT CARE documented in this encounter Results * XR Finger 5th Pinky Left (05/10/2022 8:22 PM MANAGER URGENT CARE) Anatomical Region Laterality Modality Upper Extremities, Hand, Fingers Left Computed Radiography 05/10/2022 8:47 PM MANAGER URGENT CARE Narrative 05/10/2022 8:48 PM MANAGER URGENT CARE EXAM DESCRIPTION: ?? XR FINGER 5TH PINKY [...] PM T: ??05/10/2022 8:48 PM Report ID: [id number] Reading Location: ??[id number] Procedure Note Martinez Luevano MD - 05/10/2022 [...] Martinez Luevano M.D. AG: AG Report ID: [id number] Reading Location: [id number] Henrry KIRBY IMG XR PROCEDURES Final Resu lt documented in this encounter Visit Diagnoses Diagnosis Crushing injury of left little finger, initial encounter- Primary Open fracture of tuft of distal phalanx of finger Amenorrhea Absence of menstruation Crushing injury of left little finger Open fracture of tuft of distal phalanx of finger documented in this encounter Care Teams Mine Superintendent Relationship Specialty Start Date End Date Naif Munoz MD [address] [facility] [address] [place] [address] PCP - General Family Medicine 04/09/22 documented as of this encounter
--- OUTSIDE RECORDS SUMMARY | 2024-03-08 12:23 | XMS_ITS | Encounter Summary ---
Author Organization [facility] Address [address] [place] [address] Care Team Providers Care Filler Blender Name Role Phone Naif Munoz MD Primary Care Provider [phone] Reason for Visit * Reason Comments New Patient New patient Encounter Details Date Type Department Care Team (Late st Contact Info) Description 04/09/2022 3:15 PM YARD FOREMAN Office Visit [facility] Medical [facility] Primary Care at [address] [address] Naif Munoz MD [address] [place] [address] [address] [place] [address] Encounter for medical examination to [...] on file Legal Sex Male 4:12 PM YARD FOREMAN Gender Identity Not on file Sexual Orientation Not on file 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 file Not on file Not on file documented as of this encounter Last Filed Vital Signs Vital Sign Reading Time Taken Comments Blood Pressure 114/70 04/09/2022 3:19 PM YARD FOREMAN Pulse 85 04/09/2022 3:19 PM YARD FOREMAN Temperature 37.6 ??C (99.6 ??F) 04/09/2022 3:19 PM CS T Respiratory Rate 16 04/09/2022 3:19 PM YARD FOREMAN Oxygen Saturation 98% 04/09/2022 3:19 PM YARD FOREMAN Inhaled Oxygen Concentration - - Weight 72.1 kg (159 lb) 04/09/2022 3:19 PM YARD FOREMAN Height 175.3 cm (5' 9 ) 04/09/2022 3:19 PM YARD FOREMAN Body Mass Index 23.48 04/09/2022 3:19 PM YARD FOREMAN documented in this encounter Patient Instructions * Patient Instructions* Naif Munoz MD - 04/09/2022 3:15 PM YARD FOREMAN Thanks for coming in today! My medical assistants and I are thankful you have trusted us with your care, and hope that you received EXCELLENT care today! Please do not hesitate to call if you have any questions or concerns at [phone]. You may receive a phone call, text, MYCHART message, or e-mail asking about your care today. We would love to hear your feedback on how EXCELLENT your care wastoday! Wishing you better health, always. Dr. Munoz FOREMAN * Attachments The following attachments cannot be sent through Care Everywhere. * Wellness Visit for Adults (General Information) (Taiwanese) * How to Stop Smoking (General Information) (Taiwanese) documented in this encounter Ordered Prescriptions Prescription [...] - TSH reflex to free T4; Future FOREMAN documented in this encounter Miscellaneous Notes * Assessment & Plan Note - Naif Munoz MD - 04/10/2022 12:18 PM YARD FOREMAN Associated Problem(s): Encounter for medical examination to [...] with patient along with risks vs benefits. FOREMAN documented in this encounter Plan of Treatment Not on file documented as of this encounter Results * CBC with auto differential (04/09/2022 3:56 PM YARD FOREMAN) WBC 9.8 3.8 - 9.9 K/cumm [facility] Hgb 15.2 13.0 - 17.5 g/dL [facility] CH Hct 46.9 38.9 - 50.3 % [facility] CH Plt 302 150 - 400 K[facility] MPV 9.8 9.1 - 12.3 fL [facility] RBC 4.88 4.30 - 5.80 M/cumm [facility] MCV 96.1 81.3 - 96.4 fL [facility] MCH 31.1 27.1 - 33.3 pg [facility] MCHC 32.4 32.3 - 35.7 g/dL [facility] CH RDW CV 12.4 11.1 - 14.9 % [facility] CH RDW SD 43.8 35.7 - 48.1 fL [facility] NRBC abs 0.00 0.00 - 0.01 K/cumm [facility] CH Blood 04/09/2022 3:56 PM YARD FOREMAN 04/09/2022 8:08 PM YARD FOREMAN us Naif Munoz MD LAB BLOOD ORDERABLES Final Result [facility] [address] [address] [place] [address] * Comprehensive metabolic panel (04/09/2022 3:56 PM YARD FOREMAN) Sodium 141 135 - 145 mmol/L CERNER [...] Units/L [facility] CH Blood 04/09/2022 3:56 PM YARD FOREMAN 04/09/2022 8:08 PM YARD FOREMAN Naif Munoz MD LAB BLOOD ORDERABLES Final Result CLAUDIO [id number] [facility] Department [place] [address] * Lipid panel (04/09/2022 3:56 PM YARD FOREMAN) Cholesterol 135 30 - 199 mg/dL CLAUDIO [...] 2 [facility] CH Blood 04/09/2022 3:56 PM YARD FOREMAN 04/09/2022 8:08 PM YARD FOREMAN Naif Munoz MD LAB BLOOD ORDERABLES Final Result Performing Organization Address City/[facility] Co de Phone Number CLAUDIO [phone] [address] Department [employer] [place] [address] * TSH reflex to free T4 (04/09/2022 3:56 PM YARD FOREMAN) TSH 1.53 0.30 - 4.20 mcIUnit/mL [facility] CH Blood 04/09/2022 3:56 PM YARD FOREMAN 04/09/2022 8:08 PM YARD FOREMAN Naif Munoz MD LAB BLOOD ORDERABLES Final Result Performing Organization Address [facility] de Phone Number CLAUDIO [phone] [place] [address] documented in this encounter Visit Diagnoses Diagnosis Encounter for medical examination to establish care- Primary Tobacco use disorder Screening, lipid Screening for thyroid disorder documented in this encounter Care Teams Filler Blender Relationship Specialty Start Date End Date Naif Munoz MD [facility] A[address] [facility] [address] [place] [address] PCP - General Family Medicine 04/09/22 documented as of this encounter
--- OUTSIDE RECORDS SUMMARY | 2024-03-08 12:23 | XMS_ITS | Encounter Summary ---
Author Organization [facility] Address [address] [facility] [address] [place] [address] Care Team Providers Care Audit Officer Name Role Phone Naif Munoz MD Primary Care Provider [phone] Encounter Details Date Type Department Care Team (Late st Contact Info) Description 04/13/2022 Telephone [facility] Primary Care at [address] [address] Mihaela Roger MA Social History [...] on file Legal Sex Male 4:12 PM FIELD ADMINISTRATOR Gender Identity Not on file Sexual Orientation Not on file 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 file Not on file Not on file documented as of this encounter Miscellaneous Notes * Telephone Encounter - Mihaela Roger MA - 04/13/2022 5:46 PM FIELD ADMINISTRATOR Spoke to pt, informed pt of results, pt voiced understanding D ADMINISTRATOR * Telephone Encounter - Mihaela Roger MA - 04/13/2022 5:46 PM FIELD ADMINISTRATOR ----- Message from Naif Munoz MD sent at 04/10/2022 12:20 PM FIELD ADMINISTRATOR ----- Please relay: Labs look pretty good D ADMINISTRATOR documented in this encounter Plan of Treatment Not on file documented as of this encounter Visit Diagnoses Not on filedocumented in this encounter Care Teams Audit Officer Relationship Specialty Start Date End Date Naif Munoz MD [address] [facility] [address] [place] [address] PCP - General Family Medicine 04/09/22 documented as of this encounter
== END 2024-03-01 13:04 | disposition home or self-care (01) ==
PROVIDERS: Emergency Provider Emergency Medicine; PCP Family Medicine
DX: R11.2 Nausea with vomiting, unspecified (principal); F10.129 Alcohol abuse with intoxication, unspecified
CPT/HCPCS: 99283; A9270